=== PATIENT | female | born 1995 | race Caucasian/White ===

== ENCOUNTER 2020-07-20 08:42 | Outpatient (REF) | payer BC, SELFPAY ==
[2020-07-20 12:00] LABS: Anion Gap 12 (12-20); Blood Urea Nitrogen 12 mg/dL (9-16); Calcium 9.3 mg/dL (8.4-10.2); Carbon Dioxide 26 mmol/L (22-29); Chloride 109 mmol/L (96-108); Cholesterol 217 mg/dL; Estimated Glomerular Filt Rate > 60; Glucose Fasting 88 mg/dL (60-99); HDL Cholesterol 60 mg/dL; LDL Cholesterol Calculated 129 mg/dl; Potassium 4.5 mmol/l (3.3-5.1); Sodium 142 mmol/L (135-145); Triglycerides 142 mg/dL
== END 2020-07-20 08:43 | disposition home or self-care (01) ==
LOC: HO.HMGCLDS 08:42
PROVIDERS: PCP Internal Medicine; Visit Provider Internal Medicine
DX: Z13.220 Encounter for screening for lipoid disorders (principal)
CPT/HCPCS: 80048; 80061

== ENCOUNTER 2023-09-07 17:35 | Emergency (ER) | payer BC, SELFPAY ==
--- NOTE | ~2023-09-07 | XR_ITS ---
EXAMINATION: XR CHEST 2 VIEW CLINICAL INFORMATION: Palpitations COMPARISON: None TECHNIQUE: PA and lateral views of the chest obtained. FINDINGS: The lungs are clear. There are no pleural effusions. The cardiomediastinal silhouette is normal. XR/XR chest 2V IMPRESSION: No acute cardiopulmonary disease.
--- NOTE | 2023-09-07 17:38 | ECG_ITS ---
Test Reason : palpitations Blood Pressure : / mmHG Vent. Rate : 066 BPM Atrial Rate : 066 BPM P-R Int : 164 ms QRS Dur : 090 ms QT Int : 394 ms P-R-T Axes : 068 052 050 degrees QTc Int : 413 ms Sinus rhythm with marked sinus arrhythmia Otherwise normal ECG No previous ECGs available Referred By: Saima Moses Electronically Signed By:MAVERICK VACA
[2023-09-07 18:31] VITALS: BP 146/93; PULSE 98; RESP 16; TEMP 36.5; O2SAT 98; BMI 28.4
--- NOTE | 2023-09-07 18:32 | ED.GENADULT ---
HPI - General Adult General Chief complaint: Arrhythmia/Palpitations Stated complaint: heart palpations covid booster last wk Time Seen by Provider: 09/07/23 21:33 Source: patient Mode of arrival: ambulatory Limitations: no limitations History of Present Illness HPI narrative: Patient is a 27 year old assigned female at with a history of asthma presenting to the emergency department today with intermittent palpitations. Patient states that on 08/29/2023 she had her most recent COVID-19 booster vaccination and ever since she has had episodes of palpitations. Patient denies any dizziness, lightheadedness, abdominal pain, nausea, vomiting, fever, chills, blurry vision, double vision, loss of vision, chest pain, difficulty breathing, shortness of breath, back pain, night sweats, pain with urination, increased urinary frequency, increased urinary urgency, blood in her urine or stool, syncope or a near syncopal episode, recent trauma or falls, bowel incontinence, bladder incontinence, bowel retention, bladder retention, or any other complaints at this time. Onset (ago): week(s) Severity: mild Relieving factors: none Exacerbating factors: none Associated symptoms: denies other symptoms Treatments prior to arrival: none Related Data Home Medications Medication Instructions Recorded Confirmed albuterol sulfate 90 mcg/actuation 2 puff inhalation Q6H PRN 07/20/20 07/20/20 aerosol inhaler (ProAir HFA) cetirizine 10 mg capsule (Zyrtec) 10 mg PO DAILY 07/20/20 07/20/20 fluticasone propionate 50 1 spray intranasal DAILY 07/20/20 07/20/20 mcg/actuation nasal spray,suspension Allergies Allergy/AdvReac Type Severity Reaction Status Date / Time No Known Allergies Allergy Verified 07/18/20 15:33 Review of Systems Constitutional: Constitutional: Reports no additional constitutional complaints, Denies chills, Denies fever(s) and Denies night sweats Eyes: Eyes: Reports no additional eye complaints, Denies blurry vision, Denies change in vision, Denies diplopia, Denies eye discharge, Denies loss of vision and Denies eye pain ENT: Denies dizziness Cardiovascular: Cardiovascular: Reports no additional cardiovascular complaints, Denies chest pain, Denies lightheadedness, Denies Loss of Consciousness, Reports palpitations (intermittently) and Denies dyspnea Respiratory: Respiratory: Reports no additional respiratory complaints and Denies dyspnea Gastrointestinal: Gastrointestinal: Reports no additional gastrointestinal complaints, Denies abdominal pain, Denies melena, Denies hematochezia, Denies change in bowel habits and Denies change in stool character Genitourinary: Genitourinary: Denies hematuria, Denies urinary frequency, Denies dysuria, Denies urinary incontinence, Denies urinary hesitancy and Denies urinary urgency Musculoskeletal: Musculoskeletal: Reports no additional musculoskeletal complaints, Denies numbness and Denies tingling Neurologic: Denies dizziness, Denies loss of vision, Denies numbness and Denies tingling Psychiatric: Psychiatric: Reports no additional psychiatric complaints Endocrine: Endocrine: Reports no additional endocrine complaints and Reports palpitations (intermittently) Hematologic/Lymphatic: Hematologic/Lymphatic: Reports no additional hematologic/lymphatic complaints Allergic/Immunologic: Allergic/Immunologic: Reports no additional allergic/immunologic complaints PMFSH Past Medical History Attestation statement: The following information was validated with the patient. Source: old records reviewed and nursing notes reviewed Medical History Obesity Environmental allergies Allergic asthma Lipid disorder Surgical History No pertinent past surgical history Family History Family History Father No problems noted. Mother No problems noted. Father Hyperlipidemia Social History Social History Advance Directives: No Advance Directives Information Provided: No Physical Exam ED Vital Signs: Vital Signs - 24 hr 09/07/23 18:31 09/07/23 20:42 Temperature 97.7 F 98.2 F Pulse Rate 98 58 Respiratory Rate 16 18 Blood Pressure 146/93 H 144/68 H Pulse Oximetry 98 99 Oxygen Delivery Method Room Air Room Air BMI result Body Mass Index 28.4 Const General: cooperative, no acute distress, alert and awake Nutritional Appearance: well nourished Orientation/consciousness: patient oriented x3 Limitations: no limitations HENMT Head: Yes normal to inspection and Yes atraumatic Ears: hearing grossly normal bilaterally and external ears normal General nose exam: Normal external nose present, no nasal discharge noted and no epistaxis Face and sinus: Yes normal facial exam, No abrasion and No laceration Mouth: Normal oral and palatal mucosa present, no drooling and no muffled voice Eyes General: appearance normal, both eyes and all related structures Periorbital: periorbital findings normal Eyelids: Yes eyelids normal Conjunctivae: conjunctivae normal Pupils: Equal, round and reactive pupils present EOM: EOMs intact bilaterally Neck Neck: Yes normal visual inspection, Yes full ROM and Yes no lymphadenopathy Chest Chest palpation & inspection: normal inspection of the chest Resp Effort & Inspection: normal respiratory effort and able to speak in complete sentences Cardio Rate: regular rate Rhythm: abnormal rhythm regularly irregular GI Inspection: Yes normal to inspection Neuro General: patient oriented x3 and moves all extremities Cranial nerves: Yes Equal, round and reactive pupils present Cognition (Neuro): normal cognition Motor exam (neuro): 5/5 motor strength present throughout Sensory Exam: Normal double simultaneous stimulation for sensation Coordination: [id number] test normal Extrem General: Yes normal to inspection, Yes full ROM and Yes capillary refill normal Psych Appearance: grossly normal Mental Status: mental status grossly normal Affect: normal affect Attitude: cooperative Thought process: Normal thought process present Thought content: Normal thought content present Insight: Good insight present (Psych) Course Course Course Narrative: RME performed by Saima Moses PA-C. Patient is a 27 year old assigned female at presenting to the emergency department with intermittent tachycardia since after her 3rd COVID booster 08/29/2023. Labs, imaging, and swabs ordered. Patient placed back in the waiting room pending room availability and results. Medical Decision Making Medical Decision Making [facility] Narrative: Patient is a 27 year old assigned female at with a history of asthma presenting to the emergency department today with intermittent palpations since receiving a COVID-19 booster vaccination. Patient's physical exam was as noted in the physical exam portion of this note. Patient's blood work was unremarkable. Patient's EKG showed a sinus arrhythmia but was otherwise unremarkable. Patient's chest x-ray showed no acute process. I explained my physical exam findings as well as all test results to the patient. I answered all questions asked by the patient. I stressed the importance of the patient taking her medication as prescribed. I stressed the importance of the patient following up with her primary care provider and a garnishment specialist. I stressed the importance of the patient returning to the emergency department immediately if her symptoms were to worsen or if she were to develop any dizziness, shortness of breath, difficulty breathing, chest pain, blurry vision, loss of vision, nausea, vomiting, abdominal pain, fever, chills, back pain, or any other complaints. Patient verbalized agreement and understanding with this treatment plan and discharge. Differential Diagnosis Differential Diagnoses: The differential diagnosis associated with the presentation includes Palpitations IL STEMI Anxiety POTS Admission/Observation Consideration of admission/observation: Escalation of care including admission/observation considered Patient would have been admitted to the hospital had her work up had any findings where hospital admission was appropriate and her clinical presentation warranted hospital admission. Lab Data MDM Lab Attestation statement: I reviewed the patient's lab results. My interpretation of these studies and their corresponding values is that they are grossly normal. 09/07/23 19:49 09/07/23 19:49 Labs: Lab Results 09/07/23 Range/Units 19:49 WBC 6.4 (4.8-10.8) X10*3/uL RBC 4.43 (4.20-5.50) X10*6/uL Hgb 13.5 (12.0-16.0) g/dl Hct 38.8 (37.0-47.0) % MCV 87.6 (80.0-98.0) fL MCH 30.5 (27.0-33.0) pg MCHC 34.8 (31.0-35.0) g/dl RDW 11.1 (11.0-16.0) % Plt Count 329 (160-400) X10*3/uL MPV 9.2 L (9.4-12.3) fL Immature Gran % (Auto) 0.2 (0.0-0.4) % Neut % (Auto) 62.8 (45-73) % Lymph % (Auto) 29.2 (20-40) % [place] % (Auto) 6.0 (2-11) % Eos % (Auto) 1.6 (0-4) % Baso % (Auto) 0.2 (0-2) % Lymph # (Auto) 1.9 (1.2-4.9) X10*3/uL [place] # (Auto) 0.4 (0.1-1.2) X10*3/uL Eos # (Auto) 0.1 (0.0-0.4) X10*3/uL Baso # (Auto) 0.0 (0.0-0.2) X10*3/uL Abs Immat Gran (auto) 0.01 (0.00-0.03) X10*3/uL Absolute Neuts (auto) 4.0 (2.0-8.3) x10*3/uL Absolute Nucleated RBC 0.000 (0.0-0.012) X10*3/uL Nucleated RBC % (auto) 0.0 (0.0-0.2) /100WBC Sodium 141 (135-145) mmol/L Potassium 3.8 (3.3-5.1) mmol/L Chloride 108 (96-108) mmol/L Carbon Dioxide 25 (22-29) mmol/L Anion Gap 12 (12-20) BUN 13 (9-16) mg/dL Creatinine 0.72 (0.5-1.4) mg/dL Estim Creat Clear Calc 126.2 Estimated GFR > 60 Random Glucose 90 (60-115) mg/dL Calcium 9.5 (8.4-10.2) mg/dL Magnesium 2.2 (1.6-2.6) mg/dL Total Bilirubin 0.5 (0.0-1.0) mg/dL AST 24 (5-31) U/L ALT 20 (0-31) U/L Alkaline Phosphatase 64 (39-117) U/L Troponin I High Sens < 2.7 (<3.5-17.0) ng/L Total Protein 7.7 (6.5-8.0) g/dL Albumin 4.4 (3.5-5.0) g/dL Beta HCG, Quant < 2 mIU/mL Influenza Type A (PCR) NEGATIVE (Negative) Influenza Type B (PCR) NEGATIVE (Negative) RSV RNA Qual (PCR) NEGATIVE (Negative) SARS-CoV-2 RNA (RT-PCR) NEGATIVE (Negative) Independent Interpretation I performed an independent interpretation of an: EKG and Plain X-Ray Interpretation: My interpretation is in agreement with the radiologist's impression of this imaging study. EXAMINATION: XR CHEST 2 VIEW CLINICAL INFORMATION: Palpitations COMPARISON: None TECHNIQUE: PA and lateral views of the chest obtained. FINDINGS: The lungs are clear. There are no pleural effusions. The cardiomediastinal silhouette is normal. XR/XR chest 2V IMPRESSION: No acute cardiopulmonary disease. Dictated By: Guerrero Hernandez MD Signed By: Electronically signed by Guerrero Hernandez MD 09/07/231901 Vent. Rate: 066 BPM Atrial Rate: 066 BPM P-R Int: 164 ms QRS Dur: 090 ms QT Int: 394 ms P-R-T Axes: 068 052 050 degrees QTc Int: 413 ms Sinus rhythm with marked sinus arrhythmia Otherwise normal ECG No previous ECGs available DD/ 39 Radiology Impression Discussion of test interpretation with radiology: I have reviewed the radiologist's reading. Discharge Plan Discharge Clinical Impression: Heart palpitations Patient Disposition: Home, Self-Care Instructions: Heart Palpitations (DC) Additional Instructions: Follow up with your primary care provider and a garnishment specialist. Return to the emergency department immediately if your symptoms worsen or if you develop any dizziness, shortness of breath, difficulty breathing, chest pain, blurry vision, loss of vision, nausea, vomiting, abdominal pain, fever, chills, back pain, or any other complaints. Prescriptions: No Action albuterol sulfate [ProAir HFA] 90 mcg/actuation HFA aerosol inhaler 2 puff inhalation Q6H PRN Zyrtec 10 mg capsule 10 mg PO DAILY fluticasone propionate 50 mcg/actuation spray,suspension 1 spray intranasal DAILY Rx Instructions: administer into each nostril Referrals: [facility] [Provider Group] (Call to establish and follow up with a garnishment specialist.) Kayden Michele MD [Primary Care Provider] - Stand Alone Forms: Work/School Release Interventions: ED Discharge Assessment Last Done: 09/07/23 21:39 Discharge Date/Time: 09/07/23 21:40 Print Language: Citizen Of [place]
[2023-09-07 19:55] LABS: MANUAL DIFF FLAG NO
[2023-09-07 19:57] LABS: Basophils Percent Auto 0.2 % (0-2); Eosinophils Absolute Auto 0.1 X10*3/uL (0.0-0.4); Eosinophils Percent Auto 1.6 % (0-4); Hematocrit 38.8 % (37.0-47.0); Hemoglobin 13.5 g/dl (12.0-16.0); Imm Gran Abs Auto 0.01 X10*3/uL (0.00-0.03); Imm Gran Pct Auto 0.2 % (0.0-0.4); Lymphocytes Absolute Auto 1.9 X10*3/uL (1.2-4.9); Lymphocytes Percent Auto 29.2 % (20-40); Mean Corpuscular HGB Conc 34.8 g/dl (31.0-35.0); Mean Corpuscular Hemoglobin 30.5 pg (27.0-33.0); Mean Corpuscular Volume 87.6 fL (80.0-98.0); Mean Platelet Volume 9.2 fL (9.4-12.3); Monocytes Absolute Auto 0.4 X10*3/uL (0.1-1.2); Neutrophils Percent Auto 62.8 % (45-73); Platelet Count 329 X10*3/uL (160-400); Red Blood Count 4.43 X10*6/uL (4.20-5.50); Red Cell Distribution Width 11.1 % (11.0-16.0); White Blood Count 6.4 X10*3/uL (4.8-10.8)
[2023-09-07 20:11] LABS: Alanine Aminotransferase 20 U/L (0-31); Albumin Level 4.4 g/dL (3.5-5.0); Alkaline Phosphatase 64 U/L (39-117); Anion Gap 12 (12-20); Aspartate Amino Transferase 24 U/L (5-31); Bilirubin Total 0.5 mg/dL (0.0-1.0); Blood Urea Nitrogen 13 mg/dL (9-16); Calcium 9.5 mg/dL (8.4-10.2); Carbon Dioxide 25 mmol/L (22-29); Chloride 108 mmol/L (96-108); Creatinine Clr Calc Pharmacy 126.2; Estimated Glomerular Filt Rate > 60; Glucose Random 90 mg/dL (60-115); Magnesium 2.2 mg/dL (1.6-2.6); Potassium 3.8 mmol/L (3.3-5.1); Sodium 141 mmol/L (135-145); Total Protein 7.7 g/dL (6.5-8.0)
[2023-09-07 20:20] LABS: HCG Quantitative < 2 mIU/mL; Troponin-I High Sensitivity < 2.7 ng/L (<3.5-17.0)
[2023-09-07 20:35] LABS: Influenza A PCR NEGATIVE (Negative); Influenza B PCR NEGATIVE (Negative); Resp Syncy Virus RNA Qual PCR NEGATIVE (Negative); SARS COV2 PCR INHOUSE NEGATIVE (Negative)
[2023-09-07 20:42] VITALS: BP 144/68; PULSE 58; RESP 18; TEMP 36.8; O2SAT 99
--- NOTE | 2023-09-07 21:33 | PC.NURSE ---
pt discharge in triage by PA
== END 2023-09-07 21:40 | disposition home or self-care (01) ==
LOC: HO.ED 21:39
PROVIDERS: Physician Assistant Medical; Emergency Provider Student in an Organized Health Care Education/Training Program; PCP Internal Medicine
DX: I49.9 Cardiac arrhythmia, unspecified (principal); R00.2 Palpitations; Z79.899 Other long term (current) drug therapy; Z20.822 Contact with and (suspected) exposure to COVID-19; Z20.828 Contact with and (suspected) exposure to other viral communicable diseases
CPT/HCPCS: 0241U; 36415; 71046; 80053; 83735; 84484; 84702; 85025; 93005; 99283

== ENCOUNTER → 2023-09-07 17:38 | Outpatient (BNV) | payer BC, SELFPAY | PROVIDERS: Emergency Provider Student in an Organized Health Care Education/Training Program; PCP Internal Medicine; Visit Provider Internal Medicine | DX: R00.2 Palpitations (principal) | CPT/HCPCS: 93010 ==

== ENCOUNTER 2023-09-11 08:01 | Outpatient (AMB) | payer BC, SELFPAY ==
--- NOTE | 2023-09-11 08:10 | MHC.PC.OV ---
Vital Signs 09/11/23 08:11 09/11/23 08:54 Height 5 ft 6 in Weight 176 lb BMI 28.4 BP 104/70 Blood Pressure Location Rt brachial Position Sitting Pulse 104 H 88 Pulse Source Pulse Oximeter Palpation Pulse Oximetry (%) 95 Oxygen Delivery Method Room Air Intake Visit Reasons: COMMUNITY CASE MANAGER, office visit Intake Note: Pt is here today as a New Patient to [facility] care Is last menstrual period known: Yes Last menstrual period: 09/01/23 Allergies No Known Allergies Allergy (Verified 09/11/23 08:12) Tobacco use date assessed: 09/11/23 Dental Screening Dental Screen Date: 09/11/23 Did you have a dental visit in the last 12 months?: Yes Did you have a dental problem in the last 6 months where you did not have access to dental care?: No Was dental information given to patient?: Patient has dentist HPI HPI Comments History of Present Illness Details The patient is a 27-year-old female in today following an emergency room visit. The patient presented to the emergency room 4 days prior to arrival with a chief complaint of heart palpitations following a COVID 19 booster shot. She was discharged with instructions to follow-up with primary care and make an appointment with a desk pen set assembler who she is seeing on 09/16/2023. She has a past medical history significant for asthma. At today's appointment patient states that she is anxious that she will have episodes of heart palpitations again. Labs were reviewed from the emergency room visit, and she has a therapist appointment on 09/14/2023. She is not currently experiencing any shortness of breath, dizziness, chest pain, nausea, diarrhea, or palpitations. The patient will be given hydroxyzine 25 mg to be taken as directed. We discussed using daily medication for chronic anxiety which the patient said she will consider in the future if her symptoms do not improve. Will order echo cardiogram. Will order thyroid hormone labs. She has been educated on signs of worsening symptoms and when to report to the emergency room or when to report back to the office. [facility] Medical History Obesity Environmental allergies Allergic asthma Lipid disorder Surgical History No pertinent past surgical history Family History (Updated 09/11/23 @ 08:13 by Velma Fields CMA) Father No problems noted. Mother Mental health disorder Father Hyperlipidemia Social History Housing: House Patient Tobacco Use Status: Never used Tobacco e-Cigarette/Vaping Use: Never Used service: No Current occupational status: employed Cognitive needs: No Hearing needs: No Vision needs: No Female Reproductive History Menstrual Date of last menstrual period: 09/01/23 Questionnaire PHQ-9 Over the last 2 weeks, how often have you been bothered by any of the following problems? 1. Little interest or pleasure in doing things: not at all 2. Feeling down, depressed, or hopeless: not at all 3. Trouble falling or staying asleep, or sleeping too much: not at all 4. Feeling tired or having little energy: not at all 5. Poor appetite or overeating: not at all 6. Feeling bad about yourself - or that you are a failure or have let yourself or your family down: not at all 7. Trouble concentrating on things, such as reading the newspaper or watching television: not at all 8. Moving or speaking so slowly that other people could have noticed. Or the opposite - being so fidgety or restless that you have been moving around a lot more than usual: not at all 9. Thoughts that you would be better off or of hurting yourself in some way: not at all Total score: 0 Depression Screening Interpretation: Negative Depression Screening Done: Yes 77915 - PHQ-9 Billing: Yes Source: Developed by Drs. Hong Yancey, Kelly March, Lew Pendleton and colleagues, with an educational sen from [employer]. Thrive Questionnaire Date Thrive assessed: 09/11/23 I am a: Patient What is your living situation today?: I have a steady place to live Within the past 12 months, did the food you bought not last and you didn't have the money to get more?: Never true Within the past 12 months, did you worry whether your food would run out before you got money to buy more?: Never true Do you have trouble paying for medicines?: No Do you have trouble getting transportation to medical appointments?: No Do you have trouble paying your heating and electricity bill?: No Do you have trouble taking care of your child, family member or friend?: No Do you have trouble with day-to-day activities such as bathing, preparing meals, shopping, managing finances, etc.?: No Are you currently unemployed and looking for a job?: No Are you interested in more education?: No AUDIT C Alcohol Use Questionnaire (AUDIT-C) 1. How often do you have a drink containing alcohol?: Monthly or less 2. How many drinks containing alcohol do you have on a typical day when you are drinking?: 1 or 2 3. How often do you have six or more drinks on one occasion?: Never Total Score: 1 ACT Questionnaire In the past 4 weeks, how much of the time did your asthma keep you from getting as much done at work, school or at home?: None of the time During the past 4 weeks, how often have you had shortness of breath?: Not at all During the past 4 weeks, how often did your asthma symptoms wake you up at night or earlier than usual in the morning?: Not at all During the past 4 weeks, how often have you had to use your rescue inhaler or nebulizer medication?: Not at all How would you rate your asthma control during the past 4 weeks?: Well controlled ACT Interpretation: Negative Score: 24 Review of Systems Const Details: Constitutional : No Weight loss, No Fever, No Chills, No Fatigue, No Malaise ENT/Mouth : No sore throat, No Rhinorrhea Eyes: No Eye Pain, No Swelling, No Redness Cardiovascular : No Chest Pain, No SOB, No Dyspnea on Exertion, No Orthopnea, No Edema, No Palpitations Respiratory : No Cough, No Sputum, No Wheezing Gastrointestinal : No Nausea, No Vomiting, No Diarrhea, No Constipation, No abdominal Pain, No Hematochezia, No Melena Genitourinary : No Dysuria, No Urinary Frequency, No Hematuria, Musculoskeletal : No joint pain, No Myalgias, No Joint Swelling Skin : No Skin Lesions, No rash Neuro : No Weakness, No Numbness, No Dizziness, No Headache Psych : No Anxiety/Panic, No Depression Heme/Lymph: No Bruising, No Bleeding,No Lymphadenopathy Endocrine : No Polyuria, No Polydipsia All other systems reviewed and are negative Physical exam (Primary Care) Care Plan Goal for BP management: Patient's vital signs have been reviewed and are stable. BMI result Body Mass Index 28.4 Depression Screening Interpretation: Negative Const Other: Appearance: Alert.? Oriented X3.? No acute distress.? ENT: Pharynx normal.? Neck: Normal inspection.? Neck supple.? CVS: Normal heart rate and rhythm.? Pulses normal.? Respiratory: No respiratory distress.? Breath sounds normal.? Abdomen: Soft and nontender.? Neuro: Oriented X 3.? No motor deficit.? No sensory deficit. CN 2-12 intact General: cooperative and no acute distress Orientation/consciousness: patient oriented x3 Limitations: no limitations Neuro General: patient oriented x3 Psych Affect: normal affect Attitude: cooperative Thought process: Normal thought process present Thought content: Normal thought content present Insight: Good insight present (Psych) Judgement: Good judgement present (Psych) Results Reviewed Results Reviewed: WBC 6.4 4.8-10.8 X10*3/uL RBC 4.43 4.20-5.50 X10*6/uL HGB 13.5 12.0-16.0 g/dl HCT 38.8 37.0-47.0 % MCV 87.6 80.0-98.0 fL MCH 30.5 27.0-33.0 pg MCHC 34.8 31.0-35.0 g/dl RDW 11.1 11.0-16.0 % PLT 329 160-400 X10*3/uL MPV 9.2 L 9.4-12.3 fL Neut Pct Auto 62.8 45-73 % ImGran Pct Auto 0.2 0.0-0.4 % Lymp Pct Auto 29.2 20-40 % Camas Pct Auto 6.0 2-11 % Eos Pct Auto 1.6 0-4 % Baso Pct Auto 0.2 0-2 % NRBC Pct Auto 0.0 0.0-0.2 /100WBC ANC Neut Abs # 4.0 2.0-8.3 x10*3/uL ImGran Abs Auto 0.01 0.00-0.03 X10*3/uL Lymph Abs Auto 1.9 1.2-4.9 X10*3/uL [place] Abs Auto 0.4 0.1-1.2 X10*3/uL Eos Abs Auto 0.1 0.0-0.4 X10*3/uL Baso Abs Auto 0.0 0.0-0.2 X10*3/uL NRBC Abs Auto 0.000 0.0-0.012 X10*3/uL Sodium 141 135-145 mmol/L Potassium 3.8 3.3-5.1 mmol/L CL 108 96-108 mmol/L CO2 25 22-29 mmol/L Gap 12 12-20 BUN 13 9-16 mg/dL Creat 0.72 0.5-1.4 mg/dL Estimated CrCl 126.2 Provided height and weight: 167.64 cm, 79.9 kg. eGFR (calculated from the MDRD study equation) and eCrCl (calculated from the Cockcroft-Gault equation) are based on different parameters and may not yield comparable results. If eCrCl result is absurd, please check patient's height/weight. EGFR > 60 NOTE: For -[place] individuals, multiply the result by 1.210. Chronic Kidney Disease: Estimated GFR < 60 mL/min/1.73m2 Severe Kidney Disease: Estimated GFR < 15 mL/min/1.73m2 Glucose, Random 90 60-115 mg/dL CA 9.5 8.4-10.2 mg/dL Magnesium 2.2 1.6-2.6 mg/dL Total Bili 0.5 0.0-1.0 mg/dL AST (GOT) 24 5-31 U/L ALT (GPT) 20 0-31 U/L Protein, Total 7.7 6.5-8.0 g/dL Alb 4.4 3.5-5.0 g/dL Alk Phos 64 39-117 U/L Troponin-I HS < 2.7 <3.5-17.0 ng/L Assessment and Plan Assessment & Plan (1) Heart palpitations: Comment: Patient has upcoming appointment with Cardiology on 09/16/2023. While in the emergency room she had EKG and high sensitivity troponin draw in addition to chest x-ray before she was discharged. Will order TSH, T4. Will order echocardiogram. Patient will be given hydroxyzine to be taken as needed during episodes of anxiety. Patient has been educated on signs of worsening symptoms and when to report to the emergency room or when to report back to the office. Patient is agreeable to this plan Code(s): R00.2 - Palpitations Orders: Orders TSH reflex Free T4 Today R00.2 - Palpitations CA echo transthoracic complete Today R00.2 - Palpitations Medications: New hydroxyzine HCl Do not take at same tame as cetirizine (Zyrtec). 25 mg PO ONCE PRN 14 tabs 0RF anxiety Coding Level of Care Code Est Pt Level 3 (42253) Diagnoses Heart palpitations R00.2 Time Spent (min) 30
[2023-09-11 08:11] VITALS: BP 104/70; PULSE 104; O2SAT 95; BMI 28.4
[2023-09-11 08:54] VITALS: PULSE 88
== END 2023-09-11 11:19 | disposition home or self-care (01) ==
PROVIDERS: PCP Internal Medicine; Visit Provider Nurse Practitioner Primary Care
DX: R00.2 Palpitations (principal)
CPT/HCPCS: 99213

== ENCOUNTER 2023-09-11 08:52 | Outpatient (REF) | payer BC, SELFPAY ==
[2023-09-11 13:45] LABS: TSH reflex Free T4 1.63 uIU/mL (0.32-4.0)
== END 2023-09-11 08:53 | disposition home or self-care (01) ==
LOC: HO.HMGCLDS 08:52
PROVIDERS: PCP Nurse Practitioner Primary Care; Visit Provider Nurse Practitioner Primary Care
DX: R00.2 Palpitations (principal)
CPT/HCPCS: 36415; 84443

== ENCOUNTER 2023-09-16 13:43 | Outpatient (AMB) | payer BC, SELFPAY ==
--- NOTE | 2023-09-16 13:44 | A.OFFVIS_ITS ---
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 [employer] Form Placing Supervisor Required: No Accompanied by: Self / Same As Patient Allergies No Known Allergies Allergy (Verified 09/11/23 08:12) Medication List - Last Reconciled 09/16/23 by Swati Pena NP cetirizine (Zyrtec) 10 mg PO DAILY fluticasone propionate 50 mcg/actuation 1 spray intranasal DAILY hydroxyzine HCl 25 mg PO ONCE PRN HPI HPI Comments History of Present Illness Details 27-year-old female presents today as a n patient for evaluation of palpitations. She went to the emergency room after receiving her COVID vaccine and feeling tachycardic, couldn't catch breath, and diaphoretic and feeling very poorly. The palpitations feel like a skipped beat. They have lessened in the last week or so but still feels them. She denies chest pain or shortness of breath otherwise. She has been trying to hydrate well, avoid caffeine, and trying to improve her sleeping and stress levels. [facility] Medical History Obesity Environmental allergies Allergic asthma Lipid disorder Surgical History No pertinent past surgical history Family History Mother Mental health disorder Father Hyperlipidemia Hypertension Social History Housing: House Patient Tobacco Use Status: Never used Tobacco e-Cigarette/Vaping Use: Never Used service: No Current occupational status: employed Cognitive needs: No Hearing needs: No Vision needs: No Review of Systems Const Denies chills, Denies fatigue, Denies fever(s), Denies frequent falls, Denies weakness, Denies weight gain and Denies weight loss ENT Denies dizziness Card Denies chest pain, Denies leg edema, Denies lightheadedness, Denies palpitations, Denies dyspnea and Denies dyspnea on exertion Resp Reports cough, Denies dyspnea and Denies dyspnea on exertion GI Denies hematochezia Musc Denies abnormal gait, Denies muscle weakness, Denies numbness, Denies radiating pain into limb and Denies tingling Neuro Denies abnormal gait, Denies dizziness, Denies frequent falls, Denies numbness, Denies tingling and Denies weakness Endo Denies fatigue and Denies palpitations Physical Exam Vital Signs: Last Vital Signs Pulse 82 09/16/23 13:45 BP 120/70 09/16/23 13:45 BMI result Body Mass Index 28.8 Assessment & Plan Assessment & Plan (1) Heart palpitations: Comment: Patient has upcoming appointment with Cardiology on 09/16/2023. While in the emergency room she had EKG and high sensitivity troponin draw in addition to chest x-ray before she was discharged. Will order TSH, T4. Will order echocardiogram. Patient will be given hydroxyzine to be taken as needed during episodes of anxiety. Patient has been educated on signs of worsening symptoms and when to report to the emergency room or when to report back to the office. Patient is agreeable to this plan Code(s): R00.2 - Palpitations Plan She has echocardiogram on 09/30. Will order 3 day holter to assess for arrhythmias. Discussed stress mitigation, sleep hygiene, caffeine avoidance, and hydrating well. Orders: Orders ECG 3 day holter monitor Today R00.2 - Palpitations Coding Level of Care Code New Pt Level 3 (54243) Diagnoses Heart palpitations R00.2
[2023-09-16 13:45] VITALS: BP 120/70; PULSE 82; BMI 28.8
== END 2023-09-16 14:15 | disposition home or self-care (01) ==
PROVIDERS: PCP Internal Medicine; Visit Provider Nurse Practitioner
DX: R00.2 Palpitations (principal)
CPT/HCPCS: 99203

== ENCOUNTER → 2023-09-16 13:43 | Outpatient (BNVA) | payer BC, SELFPAY | PROVIDERS: PCP Internal Medicine; Visit Provider Nurse Practitioner ==

== ENCOUNTER → 2023-09-30 13:44 | Outpatient (REF) | payer BC, SELFPAY ==
--- NOTE | 2023-09-30 13:48 | CA_ITS ---
Transthoracic Echocardiogram Patient (Last, First, Middle): Marilee Arteaga L Gender: Female Date of : 1995 Age: 28 Procedure Date: 09/30/2023 Procedure Type: Transthoracic Echocardiogram Location: OP Height: 170.18 cm Weight: 77.11 kg BSA: 1.89 m2 Heart Rate: bpm BP: 128 / 80 mmHg Foster Parent: TO Referring MD: Jamison JUAREZ Symptoms: R00.2 - Palpitations Study Quality: Adequate w contrast ECG Rhythm: Sinus Conclusions: - The left ventricular systolic function is normal. The visually estimated ejection fraction is between 55-60%. - There is low normal right ventricular systolic function. - No obvious valvular pathology seen on this study. Findings Procedure Information Contrast agent, definity, is being given per protocol without apparent complications. Left Ventricle Normal left ventricular cavity size. There is normal left ventricular wall thickness. The left ventricular systolic function is normal. The visually estimated ejection fraction is between 55-60%. There is no evidence of regional wall motion abnormalities. Diastolic function is normal for age. Right Ventricle Normal right ventricular cavity size. There is low normal right ventricular systolic function. Atria Both atria are normal in size. Aortic Valve There is a normal trileaflet aortic valve. There is no aortic valve stenosis. There is no aortic valve regurgitation. Mitral Valve The mitral valve appears normal. There is no mitral valve regurgitation. There is no mitral valve stenosis. Pulmonic Valve There is trace pulmonic valve regurgitation. Tricuspid Valve Normal tricuspid valve structure. There is trace tricuspid valve regurgitation. There is no evidence of pulmonary hypertension. Great Vessels The asc aorta is normal in size. Venous The inferior vena cava is normal in size and collapses greater than 50% with inspiration. Pericardium/Pleural There is no evidence of pericardial effusion. Prior Study Comparison No prior study available for comparison. Recommendations, Care & Conclusions No obvious valvular pathology seen on this study. Measurements 2D Linear Measurements IVSd: 0.94 0.6-0.9/0.6-1.0 cm LVIDd: 4.81 3.9-5.3/4.2-5.9 cm LVIDd Index: 2.54 2.4-3.2/2.2-3.1 cm/m2 LVIDs: 3.64 2.0-3.6 cm LVPWd: 0.79 0.7-1.1 cm LA Diam: 3.30 2.7-3.8/3.0-4.0 cm LAIDs Index: 1.75 1.5-2.3 cm/m2 LV Mass: 174.11 67-162/88-224 g LV Mass Index: 92.12 43-95/49-115 g/m2 LVOT Diam: 2.20 3.0+(-)1.3 cm 2D Systolic Function EF 4C: 60.50 >55% EF 2C: 59.80 >55% EF BiP: 60.00 >55% Mitral Valve MV Pk E: 0.66 MV PK A: 0.58 MV Decel Time: 221.00 E/A: 1.10 E'Lateral: 12.20 E'Medial: 7.40 E/E' Med: 8.90 E/E' Lat: 5.40 PHT: 65.00 MVA PHT: 3.38 Decel Latimer: 2.97 Aortic Valve AoV Pk Vinod: 1.29 AoV Mn Vinod: 0.91 AoV VTI: 0.26 AoV Pk Grad: 7.00 Aov Mn Grad: 4.00 JUDAH Cont.VTI: 2.86 LVOT LVOT Pk Vinod: 0.97 LVOT Mn Vinod: 0.66 LVOT VTI: 0.19 LVOT Pk Grad: 4.00 LVOT Mn Grad: 2.00 LVOT Diam: 2.20 LVOT Area: 3.80 Diastolic Function MV Pk E: 0.66 MV Pk A: 0.58 E/A: 1.10 E'Medial: 7.40 E/E' Med: 8.90 E' Laterial: 12.20 E/E' Lat: 5.40 Right Ventricle TAPSE (mm): 18.70 TVS' Vinod: 10.80 Tricuspid Valve RA Press: 3.00 Great Vessels Aorta Sinus of Valsalva: 3.30 2.0-3.5 cm Ao Asc: 3.00 2.1-3.4 cm Updated in Other Vendor System with Status of Final Fernando Ram MD electronically signed on 10/01/2023 11:57:50 AM with status of Final
--- NOTE | 2023-09-30 13:48 | HM_ITS ---
Conclusion: 1. Patient was monitored for total period of 3 days 2. Baseline was normal sinus with average heart of 76 beats per minute 3. Frequent PACs noted with total burden of 4.5% 4. One nonsustained VT episode of 4 beats at 182 beats per minute 5. Patient marked the counter of 8 times correlating with either sinus rhythm or sinus tachycardia or PACs or PVCs MTDD
== END ==
LOC: HO.CARD 13:44
PROVIDERS: PCP Internal Medicine; Visit Provider Nurse Practitioner
DX: R00.2 Palpitations (principal)
CPT/HCPCS: 93242; 93306; Q9957

== ENCOUNTER → 2023-09-30 13:48 | Outpatient (BNV) | payer BC, SELFPAY | PROVIDERS: PCP Internal Medicine; Visit Provider Internal Medicine | DX: I49.1 Atrial premature depolarization (principal) | CPT/HCPCS: 93244; 93306 ==

== ENCOUNTER 2023-11-24 08:48 | Outpatient (AMB) | payer BC, SELFPAY ==
[2023-11-24 08:52] VITALS: BP 120/76; PULSE 103; BMI 29.5
--- NOTE | 2023-11-24 08:52 | A.OFFVIS_ITS ---
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 Recently seen by our nurse practitioner. According to her, she got the COVID booster and within a few hours after that, she started noticing palpitations. Initially, it was very bothersome but over time, it has improved significantly. No other complaints like chest pain or shortness of breath or syncope. No previous cardiovascular issues. She has completed an echocardiogram and Holter. [facility] Medical History Obesity Environmental allergies Allergic asthma Lipid disorder Surgical History No pertinent past surgical history Family History Mother Mental health disorder Father Hyperlipidemia Hypertension Social History (Updated 11/24/23 @ 08:54 by Lisa Garzon) Housing: House Alcohol intake: current Alcohol intake frequency: holidays/special occasions only Patient Tobacco Use Status: Never used Tobacco e-Cigarette/Vaping Use: Never Used service: No Current occupational status: employed Cognitive needs: No Hearing needs: No Vision needs: No Review of Systems Const Denies weakness ENT Denies dizziness Card Denies chest pain, Denies chest pain with activity, Denies syncope, Denies rapid heart rate, Denies pedal edema, Denies edema, Denies leg edema, Denies lightheadedness, Denies palpitations, Denies dyspnea, Denies dyspnea on exertion and Denies orthopnea Resp Denies cough, Denies dyspnea and Denies dyspnea on exertion GI Denies hematochezia and Denies change in stool character Musc Denies abnormal gait, Denies muscle cramps, Denies muscle weakness, Denies numbness, Denies radiating pain into limb and Denies tingling Neuro Denies abnormal gait, Denies dizziness, Denies syncope, Denies numbness, Denies tingling and Denies weakness Endo Denies palpitations Physical Exam Vital Signs: Last Vital Signs Pulse 103 H 11/24/23 08:52 BP 120/76 11/24/23 08:52 BMI result Body Mass Index 29.5 Const General: comfortable and no acute distress Orientation/consciousness: patient oriented x3 HEENT Other: Unremarkable Head: Yes normal to inspection Neck Neck: Yes normal visual inspection Chest Chest palpation & inspection: normal inspection of the chest Resp Auscultation: clear to auscultation bilaterally Cardio Palpation: normal PMI Heart sounds: S1 normal heart sound present, S2 normal heart sound present, no gallops, no murmurs and no rubs GI Palpation (GI): Soft to palpation Back/Spine/Pelvis Other: unremarkable Skin General skin exam: no rashes or lesions noted Neuro General: patient oriented x3 Extrem General: Yes normal to inspection Psych Mental Status: mental status grossly normal Assessment & Plan Assessment & Plan (1) PAC (premature atrial contraction): Code(s): I49.1 - Atrial premature depolarization (2) NSVT (nonsustained ventricular tachycardia): Code(s): I47.29 - Other ventricular tachycardia Plan Baseline EKG shows sinus rhythm at 66/Min with marked sinus arrhythmia; normal KS and corrected QT. No evidence of pre-excitation. In the echocardiogram, LVEF 55-60%. Low normal right ventricular systolic function. Otherwise unremarkable. In the Holter monitor, underlying rhythm is sinus with an average rate of 76/Min. Frequent PACs with a burden of 4.5%. One episode of monomorphic NSVT for 4 beats. Patient's symptoms correlate with sinus rhythm, sinus tachycardia, PACs or PVCs. Findings discussed with patient. Also showed her the EKGs. Unclear if the arrhythmia has been precipitated by the COVID booster or pre- existing. At the current time, she states she is spontaneously improved. Hence, no specific management. May avoid caffeine/stimulants and alcohol. Otherwise, we will recheck Holter in a few months. Follow-up at that time. She will call with any interim concerns. Total time spent including review of data, counseling, documentation, coordination of care-31 minutes. Orders: Orders ECG 3 day holter monitor 4 Months I47.29 - Other ventricular tachycardia, I49.1 - Atrial premature depolarization Coding Level of Care Code Est Pt Level 4 (07145) Diagnoses PAC (premature atrial contraction) I49.1 NSVT (nonsustained ventricular tachycardia) I47.29
== END 2023-11-24 09:46 | disposition home or self-care (01) ==
PROVIDERS: PCP Internal Medicine; Visit Provider Internal Medicine
DX: I49.1 Atrial premature depolarization (principal); I47.29 Other ventricular tachycardia
CPT/HCPCS: 99214

== ENCOUNTER → 2023-11-24 08:48 | Outpatient (BNVA) | payer BC, SELFPAY | PROVIDERS: PCP Internal Medicine; Visit Provider Internal Medicine ==

== ENCOUNTER 2023-12-07 08:48 | Outpatient (AMB) | payer BC, SELFPAY ==
[2023-12-07 08:56] VITALS: BP 118/80; PULSE 89; O2SAT 99; BMI 28.9
--- NOTE | 2023-12-07 08:56 | MHC.PC.OV ---
Vital Signs 12/07/23 08:56 Height 5 ft 6 in Weight 179 lb BMI 28.9 BP 118/80 Blood Pressure Location Lt brachial Position Sitting Pulse 89 Pulse Source Pulse Oximeter Pulse Oximetry (%) 99 Oxygen Delivery Method Room Air Intake Visit Reasons: Annual PE Intake Note: Pt is here today for PE. Allergies No Known Allergies Allergy (Verified 12/07/23 09:28) Medication List - Last Reconciled 12/07/23 by LARRY Gutierrez escitalopram oxalate (Lexapro) 5 mg PO DAILY hydroxyzine HCl 25 mg PO ONCE PRN Tobacco use date assessed: 12/07/23 Dental Screening Dental Screen Date: 12/07/23 Did you have a dental visit in the last 12 months?: Yes Did you have a dental problem in the last 6 months where you did not have access to dental care?: No Was dental information given to patient?: Patient has dentist HPI HPI Comments History of Present Illness Details Patient is a 28-year-old female here for physical exam. She has a past medical history significant for anxiety, for which she is seeing therapy and utilizes hydroxyzine p.r.n. the patient states that hydroxyzine has good effect, she is taking about 3-4 times per week. Patient is interested in starting SSRI for better control of anxiety symptoms. Denies SI/HI. Patient has established medical genetics director. Recently completed 3 day Holter monitor. Patient has follow-up in 6 months with medical genetics director. She is up-to-date with Pap smear, she will send us the results from [facility]. [facility] Medical History Obesity Environmental allergies Allergic asthma Lipid disorder Surgical History No pertinent past surgical history Family History Mother Mental health disorder Father Hyperlipidemia Hypertension Social History Housing: House Alcohol intake: current Alcohol intake frequency: holidays/special occasions only Patient Tobacco Use Status: Never used Tobacco e-Cigarette/Vaping Use: Never Used service: No Current occupational status: employed Cognitive needs: No Hearing needs: No Vision needs: No Questionnaire PHQ-9 Over the last 2 weeks, how often have you been bothered by any of the following problems? 1. Little interest or pleasure in doing things: not at all 2. Feeling down, depressed, or hopeless: several days 3. Trouble falling or staying asleep, or sleeping too much: not at all 4. Feeling tired or having little energy: several days 5. Poor appetite or overeating: not at all 6. Feeling bad about yourself - or that you are a failure or have let yourself or your family down: not at all 7. Trouble concentrating on things, such as reading the newspaper or watching television: not at all 8. Moving or speaking so slowly that other people could have noticed. Or the opposite - being so fidgety or restless that you have been moving around a lot more than usual: not at all 9. Thoughts that you would be better off or of hurting yourself in some way: not at all Total score: 2 Depression Screening Interpretation: Negative Depression Screening Done: Yes Source: Developed by Drs. Hong Yancey, Kelly March, Lew Pendleton and colleagues, with an educational sen from [employer]. Thrive Questionnaire Date Thrive assessed: 12/07/23 I am a: Patient What is your living situation today?: I have a steady place to live Within the past 12 months, did the food you bought not last and you didn't have the money to get more?: Never true Within the past 12 months, did you worry whether your food would run out before you got money to buy more?: Never true Do you have trouble paying for medicines?: No Do you have trouble getting transportation to medical appointments?: No Do you have trouble paying your heating and electricity bill?: No Do you have trouble taking care of your child, family member or friend?: No Do you have trouble with day-to-day activities such as bathing, preparing meals, shopping, managing finances, etc.?: No Are you currently unemployed and looking for a job?: No Are you interested in more education?: No Please select the resources that you would like help with: None THRIVE Score: 0 AUDIT C Alcohol Use Questionnaire (AUDIT-C) 1. How often do you have a drink containing alcohol?: 2-4 times a month 2. How many drinks containing alcohol do you have on a typical day when you are drinking?: 3 or 4 3. How often do you have six or more drinks on one occasion?: Less than monthly Total Score: 4 LES-7 AMB Questionnaire LES-7 Date LES - 7 assessed: 12/07/23 Feeling nervous, anxious, or on edge: 2 = More than half the days Not being able to stop or control worryin = More than half the days Worrying too much about different things: 2 = More than half the days Trouble relaxin = More than half the days Being so restless that it is hard to sit still: 1 = Several days Becoming easily annoyed or irritable: 1 = Several days Feeling afraid as if something awful might happen: 2 = More than half the days Total LES-7 score (0-4 normal; 5-9 mild; 10-14 moderate; 15-21 severe): 12 Source: Developed by Drs. Hong Yancey, Kelly March, Lew Pendleton and colleagues, with an educational sen from [employer]. LES-7 Assessment Billing LES-7 Assessment Tool: LES-7 Assessment 43302 Review of Systems Const Details: Constitutional : No Weight loss, No Fever, No Chills, No Fatigue, No Malaise ENT/Mouth : No sore throat, No Rhinorrhea Eyes: No Eye Pain, No Swelling, No Redness Cardiovascular : No Chest Pain, No SOB, No Dyspnea on Exertion, No Orthopnea, No Edema, Admits occasional Palpitations. Respiratory : No Cough, No Sputum, No Wheezing Gastrointestinal : No Nausea, No Vomiting, No Diarrhea, No Constipation, No abdominal Pain, No Hematochezia, No Melena Genitourinary : No Dysuria, No Urinary Frequency, No Hematuria, Musculoskeletal : No joint pain, No Myalgias, No Joint Swelling Skin : No Skin Lesions, No rash Neuro : No Weakness, No Numbness, No Dizziness, No Headache Psych : Admits some Anxiety/Panic, No Depression. Denies SI/HI. Heme/Lymph: No Bruising, No Bleeding,No Lymphadenopathy Endocrine : No Polyuria, No Polydipsia All other systems reviewed and are negative Physical exam (Primary Care) Vital Signs: Last Vital Signs Pulse 89 12/07/23 08:56 BP 118/80 12/07/23 08:56 Pulse Ox 99 12/07/23 08:56 Oxygen Delivery Method Room Air 12/07/23 08:56 BMI result Body Mass Index 28.9 Tobacco/Smoking Status: Tobacco use Status Tobacco use date assessed 12/07/23 12/07/23 09:02 Patient Tobacco Use Status Never used Tobacco 12/07/23 09:02 e-Cigarette/Vaping Use Never Used 12/07/23 09:02 PHQ-9: PHQ-9 Score PHQ-9: Total score 2 12/07/23 09:02 Depression Screening Interpretation: Negative Thrive Assessment: Date of Thrive Assessment Date Thrive assessed 12/07/23 12/07/23 09:02 Const Other: Appearance: Alert.? Oriented X3.? No acute distress.? Head: Normocephalic, atraumatic, Eyes: Pupils equal, round and reactive to light.?No photophobia. + Red reflex. ENT: Pharynx normal.?TM intact and pearly reid. Neck: Normal inspection.? Neck supple.? CVS: Normal heart rate and rhythm.? Pulses normal.? Respiratory: No respiratory distress.? Breath sounds normal.? Abdomen: Soft and nontender.? Skin: Skin warm and dry.? Normal skin color.? Normal skin turgor.? Extremities: No lower extremity edema.? No calf ttp. 5/5 strength to bilateral upper and lower extremities Back: No midline tenderness, no C-spine tenderness, full range of motion, no CVA tenderness bilaterally Neuro: Oriented X 3.? No motor deficit.? No sensory deficit. CN 2-12 intact Results Reviewed Results Reviewed: Sodium 141 135-145 mmol/L Potassium 3.8 3.3-5.1 mmol/L CL 108 96-108 mmol/L CO2 25 22-29 mmol/L Gap 12 12-20 BUN 13 9-16 mg/dL Creat 0.72 0.5-1.4 mg/dL Estimated CrCl 126.2 Provided height and weight: 167.64 cm, 79.9 kg. eGFR (calculated from the MDRD study equation) and eCrCl (calculated from the Cockcroft-Gault equation) are based on different parameters and may not yield comparable results. If eCrCl result is absurd, please check patient's height/weight. EGFR > 60 NOTE: For -[place] individuals, multiply the result by 1.210. Chronic Kidney Disease: Estimated GFR < 60 mL/min/1.73m2 Severe Kidney Disease: Estimated GFR < 15 mL/min/1.73m2 Glucose, Random 90 60-115 mg/dL CA 9.5 8.4-10.2 mg/dL Magnesium 2.2 1.6-2.6 mg/dL Total Bili 0.5 0.0-1.0 mg/dL AST (GOT) 24 5-31 U/L ALT (GPT) 20 0-31 U/L Protein, Total 7.7 6.5-8.0 g/dL Alb 4.4 3.5-5.0 g/dL Alk Phos 64 39-117 U/L Assessment and Plan Assessment & Plan (1) Encounter for routine adult physical exam with abnormal findings: Comment: Patient has physical exam. Will draw labs. Patient is up-to-date with OBGYN, has agreed to send his medical records from [facility]. Code(s): Z00.01 - Encounter for general adult medical examination with abnormal findings (2) Anxiety: Comment: Patient currently utilizing hydroxyzine 3-4 times per week. Will start patient on SSRI. Escitalopram. Patient has been educated on the side effects of this medication. Will have patient return to office for medication check in 3-4 weeks. Code(s): F41.9 - Anxiety disorder, unspecified Plan: Take your medications as prescribed. If you were prescribed antibiotics today, it is important that you take your medication to their entirety, do not skip any doses, do not finish them early. Follow-up with your primary care provider this week. Return to the emergency department with new or worsening symptoms. Such as fevers, chills, chest pain, shortness of breath, nausea, vomiting, dizziness, headache, vision changes, lethargy In case of emergency call 911 (3) PAC (premature atrial contraction): Comment: Patient currently sees Cardiology. Will repeat Holter monitor in 4 months. She has follow-up with medical genetics director in 6 months. Code(s): I49.1 - Atrial premature depolarization Plan Patient will return in 4 weeks for medication recheck Medications: New escitalopram oxalate (Lexapro) 5 mg PO DAILY 30 tabs 0RF Coding Level of Care Code Est Pt Prev Care 18-39y(50394) Diagnoses Encounter for routine adult physical exam with abnormal findings Z00.01 Anxiety F41.9 PAC (premature atrial contraction) I49.1 Additional Codes LSE-7 Assessment Billing - LES-7 Assessment Tool: LES-7 Assessment 14389 ([id number]) Time Spent (min) 30
== END 2023-12-07 09:45 | disposition home or self-care (01) ==
PROVIDERS: PCP Internal Medicine; Visit Provider Nurse Practitioner Primary Care
DX: Z00.00 Encounter for general adult medical examination without abnormal findings (principal); F41.9 Anxiety disorder, unspecified; I49.1 Atrial premature depolarization
CPT/HCPCS: 99395

== ENCOUNTER 2023-12-28 07:54 | Outpatient (AMB) | payer BC, SELFPAY ==
[2023-12-28 08:07] VITALS: BP 108/70; PULSE 74; O2SAT 99; BMI 29.6
--- NOTE | 2023-12-28 08:07 | MHC.OFFWIV ---
Intake Vital Signs 12/28/23 08:07 Height 5 ft 6 in Weight 183 lb 2 oz BMI 29.6 Intake Visit Reasons: 3 week follow up meds Intake Note: Pt is here for a 3 week follow up after starting medications Patient Tobacco Use Status: Never used Tobacco Allergies No Known Allergies Allergy (Verified 12/28/23 08:10) PFSH Medical History Obesity Environmental allergies Allergic asthma Lipid disorder Surgical History No pertinent past surgical history Family History Mother Mental health disorder Father Hyperlipidemia Hypertension Social History Housing: House Alcohol intake: current Alcohol intake frequency: holidays/special occasions only Patient Tobacco Use Status: Never used Tobacco e-Cigarette/Vaping Use: Never Used service: No Current occupational status: employed Cognitive needs: No Hearing needs: No Vision needs: No Coding
--- NOTE | 2023-12-28 08:11 | MHC.PC.OV ---
Vital Signs 12/28/23 08:07 Height 5 ft 6 in Weight 183 lb 2 oz BMI 29.6 BP 108/70 Blood Pressure Location Rt brachial Position Sitting Pulse 74 Pulse Source Pulse Oximeter Pulse Oximetry (%) 99 Oxygen Delivery Method Room Air Intake Visit Reasons: 3 week follow up meds Intake Note: pt is here for a medication follow up Allergies No Known Allergies Allergy (Verified 12/28/23 08:27) Medication List - Last Reconciled 12/28/23 by LARRY Gutierrez escitalopram oxalate 10 mg PO DAILY hydroxyzine HCl 25 mg PO ONCE PRN Tobacco use date assessed: 12/28/23 Dental Screening Dental Screen Date: 12/28/23 Did you have a dental visit in the last 12 months?: Yes Did you have a dental problem in the last 6 months where you did not have access to dental care?: No Was dental information given to patient?: Patient has dentist HPI HPI Comments History of Present Illness Details Patient is a 28-year-old female here for a medication follow-up. Patient was started on escitalopram 5 mg p.o. 4 weeks ago for anxiety. She is here for evaluation of effectiveness of the medication. Patient also utilizes hydroxyzine p.r.n. at bedtime for insomnia due to anxiety. Patient states that the medication has improved her anxiety but she feels like she would improve even more from dosage increase. Patient denies nausea, vomiting, diarrhea, chest pain, shortness a breath, dizziness. Will also order CBC and CMP. Patient will follow-up in 4-6 weeks. [facility] Medical History Obesity Environmental allergies Allergic asthma Lipid disorder Surgical History No pertinent past surgical history Family History Mother Mental health disorder Father Hyperlipidemia Hypertension Social History Housing: House Alcohol intake: current Alcohol intake frequency: holidays/special occasions only Patient Tobacco Use Status: Never used Tobacco e-Cigarette/Vaping Use: Never Used service: No Current occupational status: employed Cognitive needs: No Hearing needs: No Vision needs: No Questionnaire Thrive Questionnaire Date Thrive assessed: 12/07/23 LES-7 AMB Questionnaire LES-7 Date LES - 7 assessed: 12/07/23 Feeling nervous, anxious, or on edge: 2 = More than half the days Not being able to stop or control worryin = Several days Worrying too much about different things: 1 = Several days Trouble relaxin = Not at all Being so restless that it is hard to sit still: 1 = Several days Becoming easily annoyed or irritable: 0 = Not at all Feeling afraid as if something awful might happen: 1 = Several days Total LES-7 score (0-4 normal; 5-9 mild; 10-14 moderate; 15-21 severe): 6 Source: Developed by Drs. Hong Yancey, Kelly March, Lew Pendleton and colleagues, with an educational sen from [employer]. LES-7 Assessment Billing LES-7 Assessment Tool: LES-7 Assessment 06171 Review of Systems Const All systems reviewed & are unremarkable except as noted in HPI and below Denies weakness ENT Denies dizziness Card Reports as per HPI Resp Reports as per HPI GI Reports as per HPI Musc Denies tingling Neuro Denies dizziness, Denies tingling and Denies weakness Psych Reports anxiety, Denies irritability, Denies panic attacks, Denies homicidal ideation and Denies suicidal ideation Physical exam (Primary Care) Vital Signs: Last Vital Signs Pulse 74 12/28/23 08:07 BP 108/70 12/28/23 08:07 Pulse Ox 99 12/28/23 08:07 Oxygen Delivery Method Room Air 12/28/23 08:07 Care Plan Goal for BP management: Vital signs reviewed and stable. BMI result Body Mass Index 29.6 Tobacco/Smoking Status: Tobacco use Status Tobacco use date assessed 12/28/23 12/28/23 08:15 Patient Tobacco Use Status Never used Tobacco 12/28/23 08:15 e-Cigarette/Vaping Use Never Used 12/28/23 08:15 Thrive Assessment: Date of Thrive Assessment Date Thrive assessed 12/07/23 12/28/23 08:15 Const Other: Appearance: Alert.? Oriented X3.? No acute distress.? Neck: Normal inspection.? Neck supple.? CVS: Normal heart rate and rhythm.? Pulses normal.? Respiratory: No respiratory distress.? Breath sounds normal.? Neuro: Oriented X 3.? No motor deficit.? No sensory deficit. CN 2-12 intact Assessment and Plan Assessment & Plan (1) Anxiety: Comment: Patient is currently utilizing hydroxyzine 3-4 times per week as bedtime as needed. Patient is also utilizing Lexapro, will increase dosage from 5 mg to 10 mg p.o. daily. Patient feels like this medication is helping Code(s): F41.9 - Anxiety disorder, unspecified Plan: Take your medications as prescribed. If you were prescribed antibiotics today, it is important that you take your medication to their entirety, do not skip any doses, do not finish them early. Follow-up with your primary care provider this week. Return to the emergency department with new or worsening symptoms. Such as fevers, chills, chest pain, shortness of breath, nausea, vomiting, dizziness, headache, vision changes, lethargy In case of emergency call 911 Plan Patient will follow-up in 4-6 weeks. Medications: New escitalopram oxalate 10 mg PO DAILY 90 tabs 0RF Discontinued escitalopram oxalate (Lexapro) Discontinued Reason: Doctor's Order 5 mg PO DAILY 30 tabs 0RF Coding Level of Care Code Est Pt Level 3 (41046) Diagnoses Anxiety F41.9 Additional Codes LES-7 Assessment Billing - LES-7 Assessment Tool: LES-7 Assessment 46794 ([id number]) Time Spent (min) 18
== END 2023-12-28 08:36 | disposition home or self-care (01) ==
PROVIDERS: PCP Nurse Practitioner Primary Care; Visit Provider Nurse Practitioner Primary Care
DX: F41.9 Anxiety disorder, unspecified (principal)
CPT/HCPCS: 96127; 99213

== ENCOUNTER 2023-12-28 08:25 | Outpatient (REF) | payer BC, SELFPAY ==
[2023-12-28 11:20] LABS: MANUAL DIFF FLAG NO
[2023-12-28 11:25] LABS: Basophils Percent Auto 0.4 % (0-2); Eosinophils Absolute Auto 0.2 X10*3/uL (0.0-0.4); Eosinophils Percent Auto 3.4 % (0-4); Hematocrit 40.8 % (37.0-47.0); Hemoglobin 13.9 g/dl (12.0-16.0); Lymphocytes Absolute Auto 1.7 X10*3/uL (1.2-4.9); Lymphocytes Percent Auto 35.3 % (20-40); Mean Corpuscular HGB Conc 34.1 g/dl (31.0-35.0); Mean Corpuscular Hemoglobin 30.1 pg (27.0-33.0); Mean Corpuscular Volume 88.3 fL (80.0-98.0); Mean Platelet Volume 9.9 fL (9.4-12.3); Monocytes Absolute Auto 0.4 X10*3/uL (0.1-1.2); Monocytes Percent Auto 7.4 % (2-11); Neutrophils Absolute Auto 2.6 x10*3/uL (2.0-8.3); Neutrophils Percent Auto 53.5 % (45-73); Platelet Count 267 X10*3/uL (160-400); Red Blood Count 4.62 X10*6/uL (4.20-5.50); Red Cell Distribution Width 11.6 % (11.0-16.0); White Blood Count 4.8 X10*3/uL (4.8-10.8)
[2023-12-28 12:48] LABS: Alanine Aminotransferase 14 U/L (0-31); Albumin Level 4.1 g/dL (3.5-5.0); Alkaline Phosphatase 58 U/L (39-117); Anion Gap 9 (12-20); Aspartate Amino Transferase 18 U/L (5-31); Bilirubin Total 0.6 mg/dL (0.0-1.0); Blood Urea Nitrogen 12 mg/dL (9-16); Calcium 9.1 mg/dL (8.4-10.2); Carbon Dioxide 26 mmol/L (22-29); Chloride 106 mmol/L (96-108); Estimated Glomerular Filt Rate > 60; Glucose Random 85 mg/dL (60-115); Potassium 4.1 mmol/L (3.3-5.1); Sodium 137 mmol/L (135-145); Total Protein 7.3 g/dL (6.5-8.0)
== END 2023-12-28 08:26 | disposition home or self-care (01) ==
LOC: HO.HMGCLDS 08:25
PROVIDERS: PCP Nurse Practitioner Primary Care; Visit Provider Nurse Practitioner Primary Care
DX: Z13.0 Encounter for screening for diseases of the blood and blood-forming organs and certain disorders involving the immune mechanism (principal); Z79.899 Other long term (current) drug therapy
CPT/HCPCS: 36415; 80053; 85025

== ENCOUNTER 2024-02-18 09:24 | Outpatient (AMB) | payer BC, SELFPAY ==
[2024-02-18 09:44] VITALS: BP 102/62; PULSE 72; O2SAT 98; BMI 28.4
--- NOTE | 2024-02-18 09:44 | A.OFFPC_ITS ---
Vital Signs 02/18/24 09:44 Height 5 ft 6 in Weight 176 lb BMI 28.4 BP 102/62 Blood Pressure Location Rt brachial Position Sitting Pulse 72 Pulse Source Pulse Oximeter Pulse Oximetry (%) 98 Intake Visit Reasons: Follow up medication Intake Note: pt is here for follow up on new medication ( lexapro) patient states she loves it Allergies No Known Allergies Allergy (Verified 02/18/24 09:56) Medication List - Last Reconciled 02/18/24 by LARRY Gutierrez escitalopram oxalate 10 mg PO DAILY hydroxyzine HCl 25 mg PO ONCE PRN loratadine (Claritin) 10 mg PO DAILY Tobacco use date assessed: 12/28/23 Dental Screening Dental Screen Date: 12/28/23 HPI HPI Comments History of Present Illness Details 28-year-old female in today for follow-u p visit for anxiety and depression. Patient is currently been taking 10 mg escitalopram daily. She states that since she started this medication her anxiety has been decreased, with no episodes of panic attack. Enter patient also states she is sleeping better at night. Patient denies chest pain, shortness a breath, dizziness, nausea, vomiting, diarrhea. Patient denies SI/HI. [facility] Medical History (Updated 02/18/24 @ 10:14 by LARRY Gutierrez) Obesity Environmental allergies Allergic asthma Lipid disorder Surgical History No pertinent past surgical history Family History Mother Mental health disorder Father Hyperlipidemia Hypertension Social History Housing: House Alcohol intake: current Alcohol intake frequency: holidays/special occasions only Patient Tobacco Use Status: Never used Tobacco e-Cigarette/Vaping Use: Never Used service: No Current occupational status: employed Cognitive needs: No Hearing needs: No Vision needs: No Questionnaire PHQ-9 Over the last 2 weeks, how often have you been bothered by any of the following problems? 1. Little interest or pleasure in doing things: not at all 2. Feeling down, depressed, or hopeless: not at all 3. Trouble falling or staying asleep, or sleeping too much: several days 4. Feeling tired or having little energy: not at all 5. Poor appetite or overeating: not at all 6. Feeling bad about yourself - or that you are a failure or have let yourself or your family down: not at all 7. Trouble concentrating on things, such as reading the newspaper or watching television: not at all 8. Moving or speaking so slowly that other people could have noticed. Or the opposite - being so fidgety or restless that you have been moving around a lot more than usual: not at all 9. Thoughts that you would be better off or of hurting yourself in some way: not at all Total score: 1 Depression Screening Interpretation: Negative Depression Screening Done: Yes 75442 - PHQ-9 Billing: Yes Source: Developed by Drs. Hong Yancey, Kelly March, Lew Pendleton and colleagues, with an educational sen from [employer] Thrive Questionnaire Date Thrive assessed: 12/07/23 LES-7 AMB Questionnaire LES-7 Date LES - 7 assessed: 02/18/24 Feeling nervous, anxious, or on edge: 1 = Several days Not being able to stop or control worryin = Not at all Worrying too much about different things: 1 = Several days Trouble relaxin = Not at all Being so restless that it is hard to sit still: 0 = Not at all Becoming easily annoyed or irritable: 0 = Not at all Feeling afraid as if something awful might happen: 0 = Not at all Total LES-7 score (0-4 normal; 5-9 mild; 10-14 moderate; 15-21 severe): 2 Source: Developed by Drs. Hong Yancey, Kelly March, Lew Pendleton and colleagues, with an educational sen from [employer] LES-7 Assessment Billing LES-7 Assessment Tool: LES-7 Assessment 58566 Review of Systems Const All systems reviewed & are unremarkable except as noted in HPI and below Physical exam (Primary Care) Vital Signs: Last Vital Signs Pulse 72 02/18/24 09:44 BP 102/62 02/18/24 09:44 Pulse Ox 98 02/18/24 09:44 Care Plan Goal for BP management: Blood pressure is in control. BMI result Body Mass Index 28.4 Tobacco/Smoking Status: Tobacco use Status Tobacco use date assessed 12/28/23 02/18/24 09:48 Patient Tobacco Use Status Never used Tobacco 02/18/24 09:48 e-Cigarette/Vaping Use Never Used 02/18/24 09:48 PHQ-9: PHQ-9 Score PHQ-9: Total score 1 02/18/24 09:48 Depression Screening Interpretation: Negative Thrive Assessment: Date of Thrive Assessment Date Thrive assessed 12/07/23 02/18/24 09:48 Const Other: Appearance: Alert.? Oriented X3.? No acute distress.? Head: Normocephalic Neck: Normal inspection.? Neck supple.? CVS: Normal heart rate and rhythm.? Pulses normal.? Respiratory: No respiratory distress.? Breath sounds normal.? Abdomen: Soft and nontender.? Neuro: Oriented X 3.? No motor deficit.? No sensory deficit. CN 2-12 intact Results Reviewed Results Reviewed: Sodium 137 135-145 mmol/L Potassium 4.1 3.3-5.1 mmol/L CL 106 96-108 mmol/L CO2 26 22-29 mmol/L Gap 9 L 12-20 BUN 12 9-16 mg/dL Creat 0.82 0.5-1.4 mg/dL EGFR > 60 NOTE: For -[place] Citizen individuals, multiply the result by 1.210. Chronic Kidney Disease: Estimated GFR < 60 mL/min/1.73m2 Severe Kidney Disease: Estimated GFR < 15 mL/min/1.73m2 Glucose, Random 85 60-115 mg/dL CA 9.1 8.4-10.2 mg/dL Total Bili 0.6 0.0-1.0 mg/dL AST (GOT) 18 5-31 U/L ALT (GPT) 14 0-31 U/L Protein, Total 7.3 6.5-8.0 g/dL Alb 4.1 3.5-5.0 g/dL Alk Phos 58 39-117 U/L Assessment and Plan Assessment & Plan (1) Anxiety: Comment: patient is currently taking Lexapro 10 mg p.o. daily. Patient also has establish care with therapist. Patient states that the medication is helping her significantly. Denies HI/SI Code(s): F41.9 - Anxiety disorder, unspecified Plan: will follow-up and 6 weeks. Medications: Refilled hydroxyzine HCl Do not take at same time as cetirizine (Zyrtec). 25 mg PO ONCE PRN 30 tabs 0RF anxiety Coding Level of Care Code Est Pt Level 3 (81120) Diagnoses Anxiety F41.9 Additional Codes LES-7 Assessment Billing - LES-7 Assessment Tool: LES-7 Assessment 68545 ([id number]) Time Spent (min) 25
== END 2024-02-18 10:04 | disposition home or self-care (01) ==
PROVIDERS: PCP Nurse Practitioner Primary Care; Visit Provider Nurse Practitioner Primary Care
DX: F41.9 Anxiety disorder, unspecified (principal)
CPT/HCPCS: 99213

== ENCOUNTER → 2024-03-07 07:53 | Outpatient (REF) | payer BC, SELFPAY ==
--- NOTE | 2024-03-07 07:56 | HM_ITS ---
Conclusion : 1) Patient was monitored for 2 days and 24 hours 2) Baseline NSR withh average HR of 77 bpm 3) Frequent sinus tachycardia with 20% of time HR > 100 bpm 4) No significant pauses 5) Ocassional PACs 6) No patient reported events MTDD
== END ==
LOC: HO.CARD 07:53
PROVIDERS: PCP Nurse Practitioner Primary Care; Visit Provider Internal Medicine
DX: I49.1 Atrial premature depolarization (principal); I47.29 Other ventricular tachycardia
CPT/HCPCS: 93242

== ENCOUNTER → 2024-03-07 07:56 | Outpatient (BNV) | payer BC, SELFPAY | PROVIDERS: PCP Nurse Practitioner Primary Care; Visit Provider Internal Medicine Cardiovascular Disease | DX: R00.0 Tachycardia, unspecified (principal) | CPT/HCPCS: 93244 ==

== ENCOUNTER 2024-03-21 08:34 | Outpatient (AMB) | payer BC, SELFPAY ==
--- NOTE | 2024-03-21 08:48 | A.OFFVIS_ITS ---
Vital Signs 03/21/24 08:49 Height 5 ft 6 in Weight 176 lb 5.917 oz BMI 28.5 BP 118/62 Blood Pressure Location Lt brachial Position Sitting Pulse 85 Pulse Source Pulse Oximeter Intake Visit Reasons: 4 month follow up Allergies No Known Allergies Allergy (Verified 02/18/24 09:56) Medication List - Last Reconciled 03/21/24 by Fernando Ram MD escitalopram oxalate 10 mg PO DAILY hydroxyzine HCl 25 mg PO DAILY loratadine (Claritin) 10 mg PO DAILY HPI Comments Details: Marilee returns for follow-up regarding palpitations. In the past, she got COVID booster and within a few hours, had palpitations. Then improved significantly. She underwent Holter and echocardiogram. In the last few months, symptoms essentially resolved and she feels back to normal self. Hence she strongly feels that the booster brought on all the palpitations. [facility] Medical History Obesity Environmental allergies Allergic asthma Lipid disorder Surgical History No pertinent past surgical history Family History Mother Mental health disorder Father Hyperlipidemia Hypertension Social History Housing: House Alcohol intake: current Alcohol intake frequency: holidays/special occasions only Patient Tobacco Use Status: Never used Tobacco e-Cigarette/Vaping Use: Never Used service: No Current occupational status: employed Cognitive needs: No Hearing needs: No Vision needs: No Review of Systems Const Denies weakness ENT Denies dizziness Card Denies chest pain, Denies chest pain with activity, Denies syncope, Denies rapid heart rate, Denies pedal edema, Denies edema, Denies leg edema, Denies lightheadedness, Denies palpitations, Denies dyspnea, Denies dyspnea on exertion and Denies orthopnea Resp Denies cough, Denies dyspnea and Denies dyspnea on exertion GI Denies hematochezia and Denies change in stool character Musc Denies abnormal gait, Denies muscle cramps, Denies muscle weakness, Denies numbness, Denies radiating pain into limb and Denies tingling Neuro Denies abnormal gait, Denies dizziness, Denies syncope, Denies numbness, Denies tingling and Denies weakness Endo Denies palpitations Physical Exam Vital Signs: Last Vital Signs Pulse 85 03/21/24 08:49 BP 118/62 03/21/24 08:49 BMI result Body Mass Index 28.5 Const General: comfortable and no acute distress Orientation/consciousness: patient oriented x3 HEENT Other: Unremarkable Head: Yes normal to inspection Neck Neck: Yes normal visual inspection Chest Chest palpation & inspection: normal inspection of the chest Resp Auscultation: clear to auscultation bilaterally Cardio Palpation: normal PMI Heart sounds: S1 normal heart sound present, S2 normal heart sound present, no gallops, no murmurs and no rubs GI Palpation (GI): Soft to palpation Back/Spine/Pelvis Other: unremarkable Skin General skin exam: no rashes or lesions noted Neuro General: patient oriented x3 Extrem General: Yes normal to inspection Psych Mental Status: mental status grossly normal Assessment & Plan Assessment & Plan (1) PAC (premature atrial contraction): Code(s): I49.1 - Atrial premature depolarization Category: Medical (2) NSVT (nonsustained ventricular tachycardia): Code(s): I47.29 - Other ventricular tachycardia Category: Medical Plan Baseline EKG shows sinus rhythm at 66/Min with marked sinus arrhythmia; normal OK and corrected QT. No evidence of pre-excitation. In the echocardiogram, LVEF 55-60%. Low normal right ventricular systolic function. Otherwise unremarkable. In the Holter monitor, underlying rhythm is sinus with an average rate of 76/Min. Frequent PACs with a burden of 4.5%. One episode of monomorphic NSVT for 4 beats. Patient's symptoms correlate with sinus rhythm, sinus tachycardia, PACs or PVCs. In the repeat study, PAC burden is about 0.5%. Seems lower than before. Otherwise unremarkable. Findings discussed with patient. Unclear if the arrhythmia has been precipitated by the COVID booster or pre- existing. At the current time, she states she is spontaneously improved. Hence, no specific management. May avoid caffeine/stimulants and alcohol. We will follow-up in 1 year with another Holter/echocardiogram. Otherwise, mainly reassurance. Orders: Orders CA echo transthoracic complete 1 Year I49.1 - Atrial premature depolarization ECG 3 day holter monitor 1 Year I49.1 - Atrial premature depolarization, R00.2 - Palpitations Coding Level of Care Code Est Pt Level 3 (41281) Diagnoses PAC (premature atrial contraction) I49.1 NSVT (nonsustained ventricular tachycardia) I47.29
[2024-03-21 08:49] VITALS: BP 118/62; PULSE 85; BMI 28.5
== END 2024-03-21 09:28 | disposition home or self-care (01) ==
PROVIDERS: PCP Internal Medicine; Visit Provider Internal Medicine
DX: I49.1 Atrial premature depolarization (principal); I47.29 Other ventricular tachycardia
CPT/HCPCS: 99213

== ENCOUNTER → 2024-03-21 08:34 | Outpatient (BNVA) | payer BC, SELFPAY | PROVIDERS: PCP Internal Medicine; Visit Provider Internal Medicine ==

== ENCOUNTER 2024-11-14 12:45 | Outpatient (REF) | payer BC, SELFPAY ==
--- OUTSIDE RECORDS SUMMARY | 2024-11-14 15:03 | XMS_ITS | Clinical Summary ---
Author Organization [facility] Address [address] [place] [phone] Phone Care Team Providers Care E Commerce Architect Name Role Phone Pavithra Feldman DO Primary [...] Health Maintenance Due Date Last Done Comments DTaP,Tdap,and Td Vaccines (7 - Td or [...] age to complete this topic Care Teams E Commerce Architect Relationship Specialty Start Date End Date Pavithra Feldman DO PCP - General 02/10/18
--- OUTSIDE RECORDS SUMMARY | 2024-11-14 15:03 | XMS_ITS | Encounter Summary ---
Author Organization [facility] Address [address] [place] [phone] Phone Care Team Providers Care Reception Interviewer Name Role Phone Pavithra Feldman DO Primary Care Provider Unavaila ble Encounter Details Date Type Department Care Team (Late st Contact Info) Description 02/12/2011 Conversion Encounter [facility] [address] [place] [address] Dr Trejo ROXY [phone] Social History Tobacco Use Types Packs/Day Years [...] on filedocumented in this encounter Care Teams Reception Interviewer Relationship Specialty Start Date End Date Pavithra Feldman DO PCP - General 02/10/18 documented as of this encounter
[2024-11-14 16:30] LABS: Alanine Aminotransferase 29 U/L (0-31); Albumin Level 4.3 g/dL (3.5-5.0); Anion Gap 12 (12-20); Aspartate Amino Transferase 38 U/L (5-31); Bilirubin Total 0.8 mg/dL (0.0-1.0); Blood Urea Nitrogen 9 mg/dL (9-16); Calcium 9.1 mg/dL (8.4-10.2); Carbon Dioxide 24 mmol/L (22-29); Chloride 107 mmol/L (96-108); Cholesterol 206 mg/dL (<200); Estimated Glomerular Filt Rate > 60; Glucose Fasting 78 mg/dL (60-99); HDL Cholesterol 62 mg/dL (>40); LDL Cholesterol Calculated 123 mg/dL (<100); Potassium 3.8 mmol/L (3.3-5.1); Sodium 139 mmol/L (135-145); Total Protein 8.3 g/dL (6.5-8.0); Triglycerides 106 mg/dL (<150)
[2024-11-14 16:45] LABS: Alkaline Phosphatase 68 U/L (39-117)
[2024-11-14 16:53] LABS: TSH reflex Free T4 1.34 uIU/mL (0.32-4.0)
== END 2024-11-14 12:46 | disposition home or self-care (01) ==
LOC: HO.HMGCLDS 12:45
PROVIDERS: PCP Internal Medicine; Visit Provider Internal Medicine
DX: Z00.01 Encounter for general adult medical examination with abnormal findings (principal); E66.09 Other obesity due to excess calories; Z68.32 Body mass index [BMI] 32.0-32.9, adult; F41.9 Anxiety disorder, unspecified; H60.502 Unspecified acute noninfective otitis externa, left ear; Z71.89 Other specified counseling; Z79.899 Other long term (current) drug therapy; Z13.220 Encounter for screening for lipoid disorders; Z13.1 Encounter for screening for diabetes mellitus
CPT/HCPCS: 36415; 80053; 80061; 84443; 96127

== ENCOUNTER 2024-11-14 12:45 | Outpatient (AMB) | payer BC, SELFPAY ==
[2024-11-14 12:53] VITALS: BP 120/90; PULSE 95; RESP 16; TEMP 36.7; O2SAT 97; BMI 31.0
--- NOTE | 2024-11-14 12:53 | A.OFFPC_ITS ---
Vital Signs 11/14/24 12:53 Height 5 ft 6 in Weight 192 lb BMI 31.0 BP 120/90 H Blood Pressure Location Rt brachial Position Sitting Respiration 16 Pulse 95 Pulse Source Pulse Oximeter Temp 98.1 F Temp Source Oral Pulse Oximetry (%) 97 Oxygen Delivery Method Room Air Intake Visit Reasons: PE/ transfer from [facility] Intake Note: Pt is here today transfer from [facility] to [facility]/ Allergies No Known Allergies Allergy (Verified 11/14/24 13:15) Medication List - Last Reconciled 11/14/24 by Emerald Tobias MD escitalopram oxalate 10 mg PO DAILY hydroxyzine HCl 25 mg PO DAILY loratadine (Claritin) 10 mg PO DAILY [semaglutide 2 mg subcut .1xW] Tobacco use date assessed: 11/14/24 Dental Screening Dental Screen Date: 11/14/24 Did you have a dental visit in the last 12 months?: Yes Did you have a dental problem in the last 6 months where you did not have access to dental care?: No Was dental information given to patient?: Patient has dentist HPI PE/ transfer from [facility] HPI Details 29-year-old lady, here to establish care with a new PCP and for physical exam. She has history of and nonsustained supraventricular tachycardia, evaluated by Cardiology, currently asymptomatic at present. Has dyslipidemia, mild intermittent asthma, and generalized anxiety disorder. She however states that she has been having frequent anxiety attacks for the last s everal months despite taking escitalopram 10 mg daily. Had a recent upper respiratory infection now complaining of sharp pain inside her left ear, with no discharge afebrile [facility] Medical History Obesity Environmental allergies Allergic asthma Lipid disorder Surgical History No pertinent past surgical history Family History Mother Mental health disorder Father Hyperlipidemia Hypertension Social History Housing: House Alcohol intake: current Alcohol intake frequency: holidays/special occasions only Patient Tobacco Use Status: Never used Tobacco e-Cigarette/Vaping Use: Never Used service: No Current occupational status: employed Cognitive needs: No Hearing needs: No Vision needs: Yes Questionnaire PHQ-9 Over the last 2 weeks, how often have you been bothered by any of the following problems? 1. Little interest or pleasure in doing things: not at all 2. Feeling down, depressed, or hopeless: not at all 3. Trouble falling or staying asleep, or sleeping too much: several days 4. Feeling tired or having little energy: several days 5. Poor appetite or overeating: not at all 6. Feeling bad about yourself - or that you are a failure or have let yourself or your family down: not at all 7. Trouble concentrating on things, such as reading the newspaper or watching television: not at all 8. Moving or speaking so slowly that other people could have noticed. Or the opposite - being so fidgety or restless that you have been moving around a lot more than usual: not at all 9. Thoughts that you would be better off or of hurting yourself in some way: not at all Total score: 2 Depression Screening Interpretation: Negative Depression Screening Done: Yes 25395 - PHQ-9 Billing: Yes Source: Developed by Drs. Hong Yancey, Kelly March, Lew Pendleton and colleagues, with an educational sen from [employer]. Thrive Questionnaire Date Thrive assessed: 11/07/24 I am a: Patient What is your living situation today?: I have a steady place to live Within the past 12 months, did the food you bought not last and you didn't have the money to get more?: Never true Within the past 12 months, did you worry whether your food would run out before you got money to buy more?: Never true Do you have trouble paying for medicines?: No Do you have trouble getting transportation to medical appointments?: No Do you have trouble paying your heating and electricity bill?: No Do you have trouble taking care of your child, family member or friend?: No Do you have trouble with day-to-day activities such as bathing, preparing meals, shopping, managing finances, etc.?: No Are you currently unemployed and looking for a job?: No Are you interested in more education?: Yes Please select the resources that you would like help with: Education Currently or been in a relationship where the following occur: No concerns repor meg THRIVE Score: 0 AUDIT C Alcohol Use Questionnaire (AUDIT-C) 1. How often do you have a drink containing alcohol?: Monthly or less 2. How many drinks containing alcohol do you have on a typical day when you are drinking?: 3 or 4 3. How often do you have six or more drinks on one occasion?: Less than monthly Total Score: 3 LES-7 AMB Questionnaire LES-7 Date LES - 7 assessed: 11/14/24 Feeling nervous, anxious, or on edge: 2 = More than half the days Not being able to stop or control worryin = Not at all Worrying too much about different things: 1 = Several days Trouble relaxin = Not at all Being so restless that it is hard to sit still: 1 = Several days Becoming easily annoyed or irritable: 0 = Not at all Feeling afraid as if something awful might happen: 0 = Not at all Total LES-7 score (0-4 normal; 5-9 mild; 10-14 moderate; 15-21 severe): 4 Source: Developed by Drs. Hong Yancey, Kelly March, Lew Pendleton and colleagues, with an educational sen from [employer]. LES-7 Assessment Billing LES-7 Assessment Tool: LES-7 Assessment 64609 Review of Systems Const Denies fatigue, Denies headache(s) and Denies weakness Eyes Details: [facility] ENT Reports as per HPI, Denies dizziness and Denies headache(s) Card Denies chest pain, Denies chest pain with activity, Denies syncope, Denies pedal edema, Denies edema, Denies leg edema, Denies lightheadedness, Denies palpitations, Denies dyspnea, Denies dyspnea on exertion and Denies orthopnea Resp Denies cough, Denies dyspnea and Denies dyspnea on exertion GI Denies hematochezia and Denies change in stool character Reports no additional complaints Musc Denies abnormal gait, Denies muscle cramps, Denies muscle weakness, Denies numbness, Denies radiating pain into limb and Denies tingling Skin/Breast Denies breast pain, Denies breast mass and Denies rash Neuro Denies abnormal gait, Denies dizziness, Denies syncope, Denies headache(s), Denies numbness, Denies tingling and Denies weakness Psych Reports no additional complaints Endo Denies fatigue and Denies palpitations Carlos/Lymph Reports no additional complaints Aller/Immun Reports no additional complaints Physical exam (Primary Care) Vital Signs: Last Vital Signs Temp 98.1 F 11/14/24 12:53 Pulse 95 11/14/24 12:53 Resp 16 11/14/24 12:53 BP 120/90 H 11/14/24 12:53 Pulse Ox 97 11/14/24 12:53 Oxygen Delivery Method Room Air 11/14/24 12:53 BMI result Body Mass Index 31.0 Tobacco/Smoking Status: Tobacco use Status Tobacco use date assessed 11/14/24 11/14/24 12:55 Patient Tobacco Use Status Never used Tobacco 11/14/24 12:55 e-Cigarette/Vaping Use Never Used 11/14/24 12:55 PHQ-9: PHQ-9 Score PHQ-9: Total score 3 11/14/24 13:29 Depression Screening Interpretation: Negative Thrive Assessment: Date of Thrive Assessment Date Thrive assessed 11/07/24 11/14/24 12:55 Currently or been in a relationship where the following occur: No concerns reported Advance Care Planning discussion: Completed/Scanned Date of discussion: 11/14/24 Who was present: Patient Forms completed: Health Care Proxy Time spent: 16-45 minutes Actual minutes spent: 2 Const General: no acute distress and alert Orientation/consciousness: patient oriented x3 HENMT Head: Yes normocephalic Ears: external ears normal and Abnormal EAC present erythema on the left and EAC tenderness General nose exam: Normal external nose present and No nasal discharge present Face and sinus: Yes face symmetric Mouth: Normal oral and palatal mucosa present, oropharynx normal and moist mucous membranes Eyes General: appearance normal, both eyes and all related structures Neck Neck: Yes full ROM, Yes no lymphadenopathy and Yes supple Thyroid: Thyroid normal Chest Breast/axilla inspection: normal inspection of the breasts Breast/axilla palpation: normal palpation of the breasts Resp Effort & Inspection: normal respiratory effort and able to speak in complete sentences Auscultation: clear to auscultation bilaterally Cardio Rate: regular rate Rhythm: regular rhythm Heart sounds: S1 normal heart sound present and S2 normal heart sound present GI Palpation (GI): Soft to palpation, nontender, no guarding and no masses Auscultation: normal bowel sounds General: Yes no CVA tenderness Back/Spine/Pelvis Back: no CVA tenderness and No back tenderness Skin General skin exam: no rashes or lesions noted Neuro General: patient oriented x3, gait normal, moves all extremities, Normal light touch and pain sensation, no focal motor deficits and CN's II-XI intact bilaterally Cognition (Neuro): normal cognition Gait exam (Neuro): Normal gait present Motor exam (neuro): 5/5 motor strength present throughout Extrem General: Yes normal to inspection, Yes full ROM, Yes no joint enlargement, Yes no pedal edema and Yes normal gait Psych Appearance: grossly normal and well kempt Mental Status: mental status grossly normal Speech and movement: Normal speech and movement present Affect: normal affect Attitude: cooperative Thought process: Normal thought process present Thought content: Normal thought content present Coding Level of Care Code Est Pt Prev Care 18-39y(63107) Diagnoses Encounter for routine adult physical exam with abnormal findings Z00. Class 1 obesity due to excess calories without serious comorbidity with body mass index (BMI) of 32.0 to 32.9 in adult E66.09; Z68.32 Body mass index: BMI 32.0-32.9 Obesity classification: adult class 1 (BMI 30 - 34.9) Obesity type: due to excess calories Serious obesity comorbidity presence: without serious comorbidity Anxiety F41.9 Advanced directives, counseling/discussion Z71.89 Acute otitis externa of left ear H60.502 Additional Codes PHQ-9 - 86802 - PHQ-9 Billing: Yes ([id number]) LES-7 Assessment Billing - LES-7 Assessment Tool: LES-7 Assessment 83813 ([id number]) Vital Signs *Quality* - Advance Care Planning discussion: Completed/Scanned ( [id number]) Vital Signs *Quality* - Time spent: 16-45 minutes ([id number]) Assessment & Plan Assessment & Plan (1) Encounter for routine adult physical exam with abnormal findings: Comment: Patient has physical exam. Will draw labs. Patient is up-to-date with OBGYN, has agreed to send his medical records from [facility]. Code(s): Z00.01 - Encounter for general adult medical examination with abnormal findings Category: Medical Plan: Will check appropriate labs. Continue dental visit every 6 months and regular eye exams, at least every 2 years, goes to [facility]. Take adequate calcium in diet and vitamin-D 3 at 2000 IU per cap once a day, in addition to weight-bearing exercises to help maintain good muscle tone and weight control. Instructed to do self-breast exam, . Goes to [facility] for her routine Pap and pelvic exam. Copy of last Pap requested.. Up-to-date with her Tdap, not want to get a flu vaccine or the COVID booster. (2) Obesity: Code(s): E66.9 - Obesity, unspecified Category: Medical Qualifiers: Body mass index: BMI 32.0-32.9 Obesity classification: adult class 1 (BMI 30 - 34.9) Obesity type: due to excess calories Serious obesity comorbidity presence: without serious comorbidity Qualified Code(s): E66.09 - Other obesity due to excess calories; Z68.32 - Body mass index [BMI] 32.0-32.9, adult Plan: Patient currently [facility] where she is prescribed semaglutide, gives herself 8 units or 2 mg subcutaneously once a week. Patient has been following a diet but has not been getting any regular exercise will check liver panel, basic metabolic panel, fasting glucose, and thyroid levels. Reviewed again possible side effects of medication which may include gastroparesis, alteration in bowel habits, increased risk for gallstones and pancreatitis. Abdominal bloating and sudden vision change (3) Anxiety: Comment: patient is currently taking Lexapro 10 mg p.o. daily. Patient also has establish care with therapist. Patient states that the medication is helping her significantly. Denies HI/SI Code(s): F41.9 - Anxiety disorder, unspecified Category: Medical Plan: Increase escitalopram dose 20 mg once a day in a.m.. Thirty tablets with 2 refills. See me back for a telehealth visit for follow-up in 6-8 weeks (4) Advanced directives, counseling/discussion: Code(s): Z71.89 - Other specified counseling Plan: Initiated the conversation about Advanced Directives. Advanced Directives help patients prepare for current and future decisions about their medical treatment and place of care. Discussed with patient that it is a process where a patients current condition and prognosis are reviewed, their wishes for information regarding their illness are elicited, and likely medical dilemmas are presented and options discussed. Healthcare proxy form completed today. The form can be amended as needed, reviewed yearly and make changes as needed (5) Acute otitis externa of left ear: Code(s): H60.502 - Unspecified acute noninfective otitis externa, left ear Plan: Prescription sent for ofloxacin 0.3% otic drops, 10 mL twice a day in left ear canal for 10 days. Return to clinic if symptoms Orders: Orders Lipid Panel 11/14/24 E66.09 - Other obesity due to excess calories, F41.9 - Anxiety disorder, unspecified, Z00.01 - Encounter for general adult medical examination with abnormal findings, Z13.1 - Encounter for screening for diabetes mellitus, Z13.220 - Encounter for screening for lipoid disorders, Z68.32 - Body mass index [BMI] 32.0-32.9, adult Comprehensive [place]. Panel Fast 11/14/24 E66.09 - Other obesity due to excess calories, F41.9 - Anxiety disorder, unspecified, Z00.01 - Encounter for general adult medical examination with abnormal findings, Z13.1 - Encounter for screening for diabetes mellitus, Z13.220 - Encounter for screening for lipoid disorders, Z68.32 - Body mass index [BMI] 32.0-32.9, adult TSH reflex Free T4 11/14/24 E66.09 - Other obesity due to excess calories, F41.9 - Anxiety disorder, unspecified, Z00.01 - Encounter for general adult medical examination with abnormal findings, Z13.1 - Encounter for screening for diabetes mellitus, Z13.220 - Encounter for screening for lipoid disorders, Z68.32 - Body mass index [BMI] 32.0-32.9, adult Medications: New ofloxacin 0.3% 10 drps otic (ears) Q12H 10 days 10 mL 0RF H60.502 - Unspecified acute noninfective otitis externa, left ear Changed From escitalopram oxalate 10 mg PO DAILY 90 tabs 0RF To escitalopram oxalate 20 mg PO DAILY 30 tabs 2RF
--- OUTSIDE RECORDS SUMMARY | 2024-11-14 13:46 | XMS_ITS | Encounter Summary ---
Author Organization [facility] Address [address] [place] [phone] Phone Care Team Providers Care Patient Safety Officer Name Role Phone Pavithra Feldman DO Primary Care Provider Unavaila ble Encounter Details Date Type Department Care Team (Late st Contact Info) Description 02/12/2011 Conversion Encounter [facility] [address] [place] [address] Dr Trejo ROXY [phone] Social History Tobacco Use Types Packs/Day Years Used Date Smoking Tobacco: Never Assessed Comments Unknown Sex and Gender Information Value Date Recorded Sex Assigned at Not on file Legal Sex Female 6:21 PM EDT Gender Identity Not on file Sexual Orientation Not on file documented as of this encounter Plan of Treatment Not on file documented as of this encounter Visit Diagnoses Not on filedocumented in this encounter Care Teams Patient Safety Officer Relationship Specialty Start Date End Date Pavithra Feldman DO PCP - General 02/10/18 documented as of this encounter
--- OUTSIDE RECORDS SUMMARY | 2024-11-14 13:46 | XMS_ITS | Clinical Summary ---
Author Organization [facility] Address [address] [place] [address] Phone Care Team Providers Care Tire Wrapper Name Role Phone Pavithra Feldman DO Primary Care Provider Unavaila ble Immunizations Immunization Administration Dates Next Due DTaP 5 10/01/2001, 8,04/03/1997,01/30,1996 HPV, Quadrivalent 07/27/2008,03/27/2008,01/25/20 08 Hep A, ped/adol 08/04/2012,01/23/2012 Hep B, ped/adol 04/03/1997,1996,1996 Hib (PRP-T) 02/01/1998, 7,01/30/1997,11/28 IPV 10/01/2001 Influenza, injectable, triva lent, preservative free 09/14/2012 Influenza, intranasal, trivalent 01/23/2012,07/06 MMR 10/01/2001,10/16/1997 Meningococcal Conj (Menactra) MCV4P 02/10/2014,0 01/25/2008 OPV 04/03/1997,01/30/1997,1996 Tdap 01/25/2008 Varicella 01/25/2008,10/16/1997 Social History Tobacco Use Types Packs/Day Years Used Date Smoking Tobacco: Former Comments:Former Smoker Comments Unknown Sex and Gender Information Value Date Recorded Sex Assigned at Not on file Legal Sex Female 6:21 PM EDT Gender Identity Not on file Sexual Orientation Not on file Last Filed Vital Signs Vital Sign Reading Time Taken Comments Blood Pressure - - Pulse 76 05/07/2016 11:52 AM EDT Temperature 36.4 ??C (97.5 ??F) 05/27/2016 8:59 AM ED T Respiratory Rate - - Oxygen Saturation - - Inhaled Oxygen Concentration - - Weight 68.9 kg (152 lb) 05/27/2016 8:59 AM EDT Height 167 cm (5' 5.75 ) 05/27/2016 8:59 AM EDT Body Mass Index 24.72 05/27/2016 8:59 AM EDT Plan of Treatment Health Maintenance Due Date Last Done Comments Consider Men B Vaccine (1 of 2 - Bexsero 2-dose series) 2012 DTaP,Tdap,and Td Vaccines (7 - Td or Tdap) 01/24/2018 01/25/2008, 10/01/2001, 04/10/1998, Additional history exists Influenza Vaccines (#1) 2024 09/14/20, 01/23/2012, 07/27/2008 COVID-19 Vaccine ( season) 2024 Hepatitis B Vaccines Completed 04/03/1997, 1996, 1996 HIB Vaccines Completed 02/01/1998, 03/07, 01/30/1997, Additional history exists IPV Vaccines Completed 10/01/2001, 03/07, 01/30/1997, Additional history exists MMR Vaccines Completed 10/01/2001, 10/16/1997 Varicella Vaccines Completed 01/25/2008, 10/16/1997 HPV Vaccines Completed 07/27/2008, 03/06, 01/25/2008 Hepatitis A Vaccines Completed 08/04/2012, 01/23/20 12 Meningococcal Vaccine Completed 02/10/2014, 008 Men B Vaccine Aged Out No longer elig ible based on patient's age to complete this topic Pneumococcal Vaccine Aged Out No long er eligible based on patient's age to complete this topic Care Teams Tire Wrapper Relationship Specialty Start Date End Date Pavithra Feldman DO PCP - General 02/10/18
== END 2024-11-14 13:49 | disposition home or self-care (01) ==
PROVIDERS: Visit Provider Internal Medicine
DX: Z00.01 Encounter for general adult medical examination with abnormal findings (principal); E66.09 Other obesity due to excess calories; Z68.32 Body mass index [BMI] 32.0-32.9, adult; F41.9 Anxiety disorder, unspecified; Z71.89 Other specified counseling; H60.502 Unspecified acute noninfective otitis externa, left ear; Z00.00 Encounter for general adult medical examination without abnormal findings

== ENCOUNTER 2025-01-06 07:59 | Outpatient (AMB) | payer BC, SELFPAY ==
--- NOTE | 2025-01-06 08:07 | A.OFFPC_ITS ---
Intake Visit Reasons: 8 weeks f/up-anxiety Pediatric Nephrologist Required: No Accompanied by: Self / Same As Patient Allergies No Known Allergies Allergy (Verified 01/06/25 16:43) Medication List - Last Reconciled 01/06/25 by Emerald Tobias MD bupropion HCl XL 150 mg PO DAILY escitalopram oxalate 20 mg PO DAILY hydroxyzine HCl 25 mg PO DAILY loratadine (Claritin) 10 mg PO DAILY [semaglutide 2 mg subcut .1xW] Tobacco use date assessed: 11/14/24 Dental Screening Dental Screen Date: 11/14/24 HPI 8 weeks f/up-anxiety HPI Details 29-year-old lady, here today for follow- up on her anxiety disorder. Patient has been taking escitalopram 20 mg daily, and has started seeing a psychiatrist nurse practitioner, Radha Mann , who also added bupropion HCL XL at 150 mg daily, which she states has been helping control her anxiety symptoms. She has been doing well, rarely needing to take her hydroxyzine tablets. [facility] Medical History (Updated 01/06/25 @ 16:47 by Emerald Tobias MD) Obesity Environmental allergies Allergic asthma Lipid disorder Surgical History No pertinent past surgical history Family History Mother Mental health disorder Father Hyperlipidemia Hypertension Social History Housing: House Alcohol intake: current Alcohol intake frequency: holidays/special occasions only Patient Tobacco Use Status: Never used Tobacco e-Cigarette/Vaping Use: Never Used service: No Current occupational status: employed Cognitive needs: No Hearing needs: No Vision needs: Yes Questionnaire Thrive Questionnaire Date Thrive assessed: 11/07/24 I am a: Patient What is your living situation today?: I have a steady place to live Within the past 12 months, did the food you bought not last and you didn't have the money to get more?: Never true Within the past 12 months, did you worry whether your food would run out before you got money to buy more?: Never true Do you have trouble paying for medicines?: No Do you have trouble getting transportation to medical appointments?: No Do you have trouble paying your heating and electricity bill?: No Do you have trouble taking care of your child, family member or friend?: No Do you have trouble with day-to-day activities such as bathing, preparing meals, shopping, managing finances, etc.?: No Are you currently unemployed and looking for a job?: No Are you interested in more education?: Yes Please select the resources that you would like help with: Education Currently or been in a relationship where the following occur: No concerns reported THRIVE Score: 0 LES-7 AMB Questionnaire LES-7 Date LES - 7 assessed: 01/06/25 Feeling nervous, anxious, or on edge: 0 = Not at all Not being able to stop or control worryin = Not at all Worrying too much about different things: 1 = Several days Trouble relaxin = Not at all Being so restless that it is hard to sit still: 0 = Not at all Becoming easily annoyed or irritable: 1 = Several days Feeling afraid as if something awful might happen: 0 = Not at all Total LES-7 score (0-4 normal; 5-9 mild; 10-14 moderate; 15-21 severe): 2 Source: Developed by Drs. Hong Yancey, Kelly March, Lew Pendleton and colleagues, with an educational sen from thePlatform. LES-7 Assessment Billing LES-7 Assessment Tool: LES-7 Assessment 26752 Review of Systems Const Denies fatigue and Denies weakness Eyes Details: [facility] Card Denies chest pain, Denies chest pain with activity, Denies edema, Denies lightheadedness, Denies palpitations, Denies dyspnea and Denies dyspnea on exertion Resp Denies cough, Denies dyspnea and Denies dyspnea on exertion GI Denies hematochezia and Denies change in stool character Reports no additional complaints Musc Denies abnormal gait, Denies muscle cramps, Denies muscle weakness, Denies numbness, Denies radiating pain into limb and Denies tingling Skin/Breast Denies breast pain, Denies breast mass and Denies rash Neuro Denies abnormal gait, Denies numbness, Denies tingling and Denies weakness Psych Reports no additional complaints Endo Denies fatigue and Denies palpitations Carlos/Lymph Reports no additional complaints Aller/Immun Reports no additional complaints Physical exam (Primary Care) Tobacco/Smoking Status: Tobacco use Status Tobacco use date assessed 11/14/24 01/06/25 08:09 Patient Tobacco Use Status Never used Tobacco 01/06/25 08:09 e-Cigarette/Vaping Use Never Used 01/06/25 08:09 Thrive Assessment: Date of Thrive Assessment Date Thrive assessed 11/07/24 01/06/25 08:09 Currently or been in a relationship where the following occur: No concerns reported Telehealth Telehealth Telehealth Platform: [employer] Location of provider rendering services: practice address Location of patient: address on file Patient Identification confirmed using: Name, : Yes Telehealth method: video Patient verbally consented to treatment: Yes Patient verbally consented to billing insurance company: Yes Patient informed of any privacy concerns related to visit: Yes Minutes spent on Phone/Video with Pt.: 15 Coding Level of Care Code Tele Est Pt Level 3 (65000) Diagnoses Anxiety F41.9 Additional Codes LES-7 Assessment Billing - LES-7 Assessment Tool: LES-7 Assessment 26486 ([id number]) Assessment & Plan Assessment & Plan (1) Anxiety: Comment: On escitalopram 20 mg and started on bupropion HCL 150 mg in the morning by Radha Mann Code(s): F41.9 - Anxiety disorder, unspecified Category: Medical Plan: Now currently being followed by Psychiatry, currently on escitalopram 20 mg daily and bupropion HCL XL 150 mg taken once a day in the morning., rarely taking her iron hydroxyzine tablets for acute anxiety attacks.
--- OUTSIDE RECORDS SUMMARY | 2025-01-06 08:07 | XMS_ITS | Clinical Summary ---
Author Organization [facility] Address [address] [place] [phone] Phone Care Team Providers Care Offset Plate Preparation Supervisor Name Role Phone Pavithra Feldman DO Primary [...] age to complete this topic Care Teams Offset Plate Preparation Supervisor Relationship Specialty Start Date End Date Pavithra Feldman DO PCP - General 02/10/18
--- OUTSIDE RECORDS SUMMARY | 2025-01-06 08:07 | XMS_ITS | Encounter Summary ---
Author Organization [facility] Address [address] [place] [phone] Phone Care Team Providers Care Fence Erector Supervisor Name Role Phone Pavithra Feldman DO Primary Care Provider Unavaila ble Encounter Details Date Type Department Care Team (Late st Contact Info) Description 02/12/2011 Conversion Encounter [facility] [address] [place] [address] Dr Trejo ROXY [phone] Social History Tobacco Use Types Packs/Day Years [...] on filedocumented in this encounter Care Teams Fence Erector Supervisor Relationship Specialty Start Date End Date Pavithra Feldman DO PCP - General 02/10/18 documented as of this encounter
== END 2025-01-06 09:41 | disposition home or self-care (01) ==
LOC: HO.HMCC 07:59
PROVIDERS: Visit Provider Internal Medicine
DX: F41.9 Anxiety disorder, unspecified (principal)

== ENCOUNTER → 2025-01-06 07:59 | Outpatient (BNVA) | payer BC, SELFPAY | PROVIDERS: Visit Provider Internal Medicine | DX: F41.9 Anxiety disorder, unspecified (principal); Z79.899 Other long term (current) drug therapy | CPT/HCPCS: 96127 ==

== ENCOUNTER → 2025-03-06 07:58 | Outpatient (REF) | payer BC, SELFPAY ==
--- OUTSIDE RECORDS SUMMARY | 2025-03-06 08:00 | XMS_ITS | Encounter Summary ---
Author Organization [facility] Address [address] [place] [phone] Phone Care Team Providers Care Junior Account Executive Name Role Phone Pavithra Feldman DO Primary Care Provider Unavaila ble Encounter Details Date Type Department Care Team (Late st Contact Info) Description 02/12/2011 Conversion Encounter [facility] [address] [place] [address] Dr Trejo ROXY [id number] Social History Tobacco Use Types Packs/Day Years [...] on filedocumented in this encounter Care Teams Junior Account Executive Relationship Specialty Start Date End Date Pavithra Feldman DO PCP - General 02/10/18 documented as of this encounter
--- NOTE | 2025-03-06 08:10 | CA_ITS ---
Transthoracic Echocardiogram Patient (Last, First, Middle): Marilee Arteaga L Gender: Female Date of : 1995 Age: 29 Procedure Date: 03/06/2025 Procedure Type: Transthoracic Echocardiogram Location: OP Height: 170. cm Weight: 81.65 kg BSA: 1.93 m2 Heart Rate: 76 bpm BP: 105 / 75 mmHg Compensation Advisor: SIRENA Referring MD: Fernando Ram MD Symptoms: I49.1 - Atrial premature depolarization Study Quality: Adequate ECG Rhythm: Ocassional PACs Conclusions: - The left ventricular systolic function is low normal. The visually estimated ejection fraction is between 50-55%. - No obvious valvular pathology seen on this study. Findings Left Ventricle Normal left ventricular cavity size. There is normal left ventricular wall thickness. The left ventricular systolic function is low normal. The visually estimated ejection fraction is between 50-55%. There is no evidence of regional wall motion abnormalities. Diastolic function is normal for age. Right Ventricle Normal right ventricular cavity size. There is low normal right ventricular systolic function. Atria Both atria are normal in size. Aortic Valve There is a normal trileaflet aortic valve. There is no aortic valve stenosis. There is no aortic valve regurgitation. Mitral Valve The mitral valve appears normal. There is no mitral valve regurgitation. There is no mitral valve stenosis. Pulmonic Valve The pulmonic valve is likely normal. Tricuspid Valve There is trace tricuspid valve regurgitation. There is no evidence of pulmonary hypertension. Great Vessels The asc aorta and aortic arch are normal in size. Venous The inferior vena cava is normal in size and collapses greater than 50% with inspiration. Pericardium/Pleural There is a trivial pericardial effusion. Prior Study Comparison No significant change compared to prior study dated: 09/30/2023. Recommendations, Care & Conclusions No obvious valvular pathology seen on this study. Measurements 2D Linear Measurements IVSd: 0.81 0.6-0.9/0.6-1.0 cm LVIDd: 4.13 3.9-5.3/4.2-5.9 cm LVIDd Index: 2.14 2.4-3.2/2.2-3.1 cm/m2 LVIDs: 3.14 2.0-3.6 cm LVPWd: 1.03 0.7-1.1 cm LA Diam: 2.90 2.7-3.8/3.0-4.0 cm LAIDs Index: 1.50 1.5-2.3 cm/m2 LV Mass: 147.58 67-162/88-224 g LV Mass Index: 76.47 43-95/49-115 g/m2 LVOT Diam: 2.10 3.0+(-)1.3 cm 2D Systolic Function EF 4C: 61.90 >55% EF 2C: 57.80 >55% EF BiP: 60.00 >55% Mitral Valve MV Pk E: 0.74 MV PK A: 0.58 MV Decel Time: 199.00 E/A: 1.30 E'Lateral: 10.80 E'Medial: 8.30 E/E' Med: 8.90 E/E' Lat: 6.80 PHT: 58.00 MVA PHT: 3.79 Decel [place]: 3.69 Aortic Valve AoV Pk Vinod: 1.03 AoV Mn Vinod: 0.72 AoV VTI: 0.18 AoV Pk Grad: 4.00 Aov Mn Grad: 2.00 JUDAH Cont.VTI: 3.14 LVOT LVOT Pk Vinod: 0.86 LVOT Mn Vinod: 0.60 LVOT VTI: 0.16 LVOT Pk Grad: 3.00 LVOT Mn Grad: 2.00 LVOT Diam: 2.10 LVOT Area: 3.46 Diastolic Function MV Pk E: 0.74 MV Pk A: 0.58 E/A: 1.30 E'Medial: 8.30 E/E' Med: 8.90 E' Laterial: 10.80 E/E' Lat: 6.80 Right Ventricle TAPSE (mm): 24.60 TVS' Vinod: 9.79 Tricuspid Valve TR Pk Vinod: 1.45 TR Pk Grad: 8.00 RA Press: 3.00 RVSP: 11.00 Great Vessels Aorta Sinus of Valsalva: 3.20 2.0-3.5 cm Ao Asc: 2.80 2.1-3.4 cm Pulmonary Valve PV Pk Vinod: 0.83 Peak PV Grad: 3.00 Updated in Other Vendor System with Status of Final Fernando Ram MD electronically signed on 03/06/2025 9:37:33 AM with status of Final
== END ==
LOC: HO.CARD 07:58
PROVIDERS: PCP Internal Medicine; Visit Provider Internal Medicine
DX: R00.2 Palpitations (principal); I49.1 Atrial premature depolarization
CPT/HCPCS: 93242; 93306

== ENCOUNTER → 2025-03-06 08:10 | Outpatient (BNV) | payer BC, SELFPAY | PROVIDERS: PCP Internal Medicine; Visit Provider Internal Medicine | DX: R94.31 Abnormal electrocardiogram [ECG] [EKG] (principal) | CPT/HCPCS: 93306 ==

== ENCOUNTER 2025-03-21 09:01 | Outpatient (AMB) | payer BC, SELFPAY ==
--- NOTE | 2025-03-21 09:05 | A.OFFVIS_ITS ---
Vital Signs 03/21/25 09:06 Height 5 ft 6 in Weight 194 lb 0.108 oz BMI 31.3 BP 90/62 Blood Pressure Location Lt brachial Position Sitting Pulse 58 Pulse Source Monitor Intake Visit Reasons: 1 yr f/up s/p echo/ holter Insurance Executive Required: No Accompanied by: Self / Same As Patient Allergies No Known Allergies Allergy (Verified 01/06/25 16:43) Medication List - Last Reconciled 03/21/25 by Fernando Ram MD escitalopram oxalate (Lexapro) 10 mg PO DAILY hydroxyzine HCl 25 mg PO DAILY HPI Comments Details: Marilee returns for follow-up regarding palpitations. In the past, she got COVID booster and within a few hours, had palpitations. Initially, it was significant but with time, it improved quite a bit. Over the last year or so, she states she is completely normal. She has got no symptoms whatsoever like chest pains o r shortness of breath or palpitations or in fact anything cardiac sounding. She states she is getting along fine. [facility] Medical History Obesity Environmental allergies Allergic asthma Lipid disorder Surgical History No pertinent past surgical history Family History Mother Mental health disorder Father Hyperlipidemia Hypertension Social History Housing: House Alcohol intake: current Alcohol intake frequency: holidays/special occasions only Patient Tobacco Use Status: Never used Tobacco e-Cigarette/Vaping Use: Never Used service: No Current occupational status: employed Cognitive needs: No Hearing needs: No Vision needs: Yes Review of Systems Const Denies chills, Denies fatigue, Denies fever(s), Denies frequent falls, Denies weakness, Denies weight gain and Denies weight loss ENT Denies dizziness Card Denies chest pain, Denies leg edema, Denies lightheadedness, Denies palpitations, Denies dyspnea and Denies dyspnea on exertion Resp Denies cough, Denies dyspnea and Denies dyspnea on exertion GI Denies hematochezia Musc Denies abnormal gait, Denies muscle weakness, Denies numbness, Denies radiating pain into limb and Denies tingling Neuro Denies abnormal gait, Denies dizziness, Denies frequent falls, Denies numbness, Denies tingling and Denies weakness Endo Denies fatigue and Denies palpitations Physical Exam Vital Signs: Last Vital Signs Pulse 58 03/21/25 09:06 BP 90/62 03/21/25 09:06 BMI result Body Mass Index 31.3 Const General: comfortable and no acute distress Orientation/consciousness: patient oriented x3 HEENT Other: Unremarkable Head: Yes normal to inspection Neck Neck: Yes normal visual inspection Chest Chest palpation & inspection: normal inspection of the chest Resp Auscultation: clear to auscultation bilaterally Cardio Palpation: normal PMI Heart sounds: S1 normal heart sound present, S2 normal heart sound present, no gallops, no murmurs and no rubs GI Palpation (GI): Soft to palpation Back/Spine/Pelvis Other: unremarkable Skin General skin exam: no rashes or lesions noted Neuro General: patient oriented x3 Extrem General: Yes normal to inspection Psych Mental Status: mental status grossly normal Office Procedures EKG Details: EKG with sinus rhythm, sinus arrhythmia, 58/Min; no significant ST-T changes; [place]. [id number], Complete Assessment & Plan Assessment & Plan (1) PAC (premature atrial contraction): Code(s): I49.1 - Atrial premature depolarization Category: Medical (2) NSVT (nonsustained ventricular tachycardia): Code(s): I47.29 - Other ventricular tachycardia Category: Medical Plan Cardiac studies reviewed. Echocardiogram with low normal LVEF at 50-55%. Low normal right ventricular systolic function. Otherwise unremarkable. In the previous study, reported LVEF was 55-60%. In the recent Holter monitor, rare ectopy. In the previous study, PAC burden was 4.5%. One episode of monomorphic NSVT for 4 beats. Symptoms correlated with sinus rhythm, sinus tachycardia, PACs/PVCs. Overall, not clear if the supraventricular/ventricular ectopy was precipitated by COVID booster over positive pre-existing issue. It seems to have improved spontaneously. She has low normal LVEF but no specific significance to that as she is otherwise asymptomatic. Advised her to contact us with any concerns. Otherwise, we will plan to see her in about 2 years. Discussion Notes I addressed the patient's sinus arrhythmia, explaining that it is normal with changes in breathing and requires no intervention. I informed her about the Holter results showing minimal irregularities and the LVEF being at the low normal, range. We agreed on a two-year follow-up for echocardiography and Holter monitor, advising a year without monitoring unless new symptoms arise. The patient consented to this plan, recognizing the stability of current findings. Patient was informed and verbally consented to the use of an ambient scribe for clinic note documentation during this visit. Patient Instructions: - Return for follow-up in two years or sooner if new symptoms develop. - Monitor for any new episodes of palpitations and contact us immediately. Coding Level of Care Code Est Pt Level 3 (88269) Diagnoses PAC (premature atrial contraction) I49.1 NSVT (nonsustained ventricular tachycardia) I47.29 CPT Codes EKG - CPT: [id number], Complete ([id number])
[2025-03-21 09:06] VITALS: BP 90/62; PULSE 58; BMI 31.3
--- OUTSIDE RECORDS SUMMARY | 2025-03-21 09:37 | XMS_ITS | Encounter Summary ---
Author Organization [facility] Address [address] [place] [phone] Phone Care Team Providers Care Cloth Dye Range Operator Name Role Phone Pavithra Feldman DO Primary Care Provider Unavaila ble Encounter Details Date Type Department Care Team (Late st Contact Info) Description 02/12/2011 Conversion Encounter [facility] [address] [place] [address] Dr Trejo ROXY [id number] Social History Tobacco Use Types Packs/Day Years [...] on filedocumented in this encounter Care Teams Cloth Dye Range Operator Relationship Specialty Start Date End Date Pavithra Feldman DO PCP - General 02/10/18 documented as of this encounter
== END 2025-03-21 09:23 | disposition home or self-care (01) ==
LOC: HO.HCS 09:02
PROVIDERS: Visit Provider Internal Medicine
DX: I49.1 Atrial premature depolarization (principal); I47.29 Other ventricular tachycardia
CPT/HCPCS: 93010; 99213

== ENCOUNTER → 2025-03-21 09:01 | Outpatient (BNVA) | payer BC, SELFPAY | PROVIDERS: Visit Provider Internal Medicine | DX: I49.1 Atrial premature depolarization (principal); I47.29 Other ventricular tachycardia | CPT/HCPCS: 93005 ==